=== PATIENT | male | born 1950 | race African-American/Black ===

== ENCOUNTER 2016-10-29 14:06 | Inpatient (IN) | payer MEDICARE ==
[2016-10-29 16:18] LABS: Basophils % (Auto) 0.2 % (0.0-1.8); Eosinophils % (Auto) 0.9 % (0.0-4.3); Hemoglobin 11.2 gm/dl (11.8-15.2); Mean Corpuscular HGB Conc 34 % (32-34); Mean Corpuscular Hemoglobin 31 pg (28-32); Mean Corpuscular Volume 92 fl (84-94); Red Blood Count 3.59 M/mm3 (3.65-5.03); Red Cell Distribution Width 16.7 % (13.2-15.2); White Blood Count 9.1 K/mm3 (4.5-11.0)
[2016-10-29 16:34] LABS: BUN/Creatinine Ratio 9.41; Chloride 106.6 mmol/L (98-107)
[2016-10-29] MEDS ORDERED: NACL 0.9% 1000 ML 1,000 ML IV ONE ×2 (17:04→17:12)
--- NOTE | 2016-10-29 17:09 | Emergency Department Report ---
ED General Adult HPI - General Chief complaint: Wound/Laceration Stated complaint: LEFT LEG PAIN Time Seen by Provider: 10/29/16 15:44 Source: patient Mode of arrival: Ambulatory Limitations: No Limitations - History of Present Illness Initial comments: Patient is a 66-year-old male who presents with left foot pain. He states that the pain is a 3 out 10 he states that walking on it makes it worse and nothing makes it better. The pain is located in his left ankle doesn't radiate achy type of pain. Is not associated with any symptoms is been going on for 1 week. He states that he saw a therapeutic specialist and was given medication for his condition however he has had no improvement. Patient denies having any fevers or chills. - Related Data Home Medications Medication Instructions Recorded Confirmed Last Taken Century Adults 50+ Tablet 1 tab PO DAILY 06/16/15 10/29/16 06/15/15 Losartan 50 mg PO DAILY 06/16/15 10/29/16 06/15/15 glipiZIDE 10 mg PO TIDWM 06/16/15 10/29/16 06/15/15 Gabapentin [Neurontin] 100 mg PO QHS 10/29/16 10/29/16 Unknown Naproxen/Esomeprazole Mag [Vimovo 2 each PO DAILY 10/29/16 10/29/[address] 500-20 mg Tablet] Allergies Allergy/AdvReac Type Severity Reaction Status Date / Time No Known Allergies Allergy Verified 10/29/16 14:13 ED Review of Systems ROS: Stated complaint: LEFT LEG PAIN Other details as noted in HPI Constitutional: denies: chills, fever Eyes: denies: eye pain, eye discharge, vision change ENT: denies: ear pain, throat pain Respiratory: denies: cough, shortness of breath, wheezing Cardiovascular: denies: chest pain, palpitations Endocrine: no symptoms reported Gastrointestinal: denies: abdominal pain, nausea, diarrhea Genitourinary: denies: urgency, dysuria Musculoskeletal: other (ankle pain) Skin: denies: rash, lesions Neurological: denies: headache, weakness, paresthesias Psychiatric: denies: anxiety, depression Hematological/Lymphatic: denies: easy bleeding, easy bruising ED Past Medical Hx - Past Medical History Hx Hypertension: Yes Hx Heart Attack/AMI: No Hx Diabetes: Yes Hx GERD: Yes Hx Liver Disease: Yes (HEPATITIS C) Hx Renal Disease: No Hx Seizures: No Hx Asthma: No Additional medical history: HEPC - Surgical History Hx Cholecystectomy: Yes - Social History Smoking Status: Current Every Day Smoker Substance Use Type: Alcohol - Medications Home Medications: Home Medications Medication Instructions Recorded Confirmed Last Taken Type Century Adults 50+ Tablet 1 tab PO DAILY 06/16/15 10/29/16 06/15/15 History Losartan 50 mg PO DAILY 06/16/15 10/29/16 06/15/15 History glipiZIDE 10 mg PO TIDWM 06/16/15 10/29/16 06/15/15 History Gabapentin [Neurontin] 100 mg PO QHS 10/29/16 10/29/16 Unknown History Naproxen/Esomeprazole Mag [Vimovo 2 each PO DAILY 10/29/16 10/29/[address] 500-20 mg Tablet] ED Physical Exam - General Limitations: No Limitations, Language Barrier General appearance: alert, in no apparent distress - Head Head exam: Present: atraumatic, normocephalic - Eye Eye exam: Present: normal appearance - ENT ENT exam: Present: mucous membranes moist - Neck Neck exam: Present: normal inspection - Respiratory Respiratory exam: Present: normal lung sounds bilaterally. Absent: respiratory distress - Cardiovascular Cardiovascular Exam: Present: regular rate, normal rhythm. Absent: systolic murmur, diastolic murmur, rubs, gallop - GI/Abdominal GI/Abdominal exam: Present: soft, normal bowel sounds - Rectal Rectal exam: Present: deferred - Extremities Exam Extremities exam: Present: other (+2 pulses swelling over left lateral malleolus with weeping drainage and erythema) - Back Exam Back exam: Present: normal inspection - Neurological Exam Neurological exam: Present: alert, oriented X3, CN II-XII intact - Psychiatric Psychiatric exam: Present: normal affect, normal mood - Skin Skin exam: Present: warm, dry, intact, normal color. Absent: rash ED Course Vital Signs 10/29/16 10/29/16 10/29/16 14:19 15:03 16:00 Temperature 98.3 F Pulse Rate 94 H 74 Respiratory 18 15 Rate Blood Pressure 125/76 107/77 O2 Sat by Pulse 100 100 100 Oximetry 10/29/16 10/29/16 10/29/16 16:51 17:00 18:00 Temperature Pulse Rate 74 75 Respiratory 15 12 16 Rate Blood Pressure 126/78 125/70 O2 Sat by Pulse 100 100 100 Oximetry 10/29/16 18:43 Temperature 97.9 F Pulse Rate Respiratory Rate Blood Pressure O2 Sat by Pulse Oximetry - Reevaluation(s) Reevaluation #1: 10/29/16 18:54 Patient states that he is in pain we'll give morphine and Dolobid patient for cellulitis. ED Medical Decision Making - Lab Data Result diagrams: 10/29/16 16:02 10/29/16 16:02 Laboratory Results - last 24 hr 10/29/16 10/29/16 10/29/16 14:16 16:02 16:02 WBC 9.1 RBC 3.59 L Hgb 11.2 L Hct 33.0 L MCV 92 MCH 31 MCHC 34 RDW 16.7 H Lymph % (Auto) 5.9 L Spink % (Auto) 12.7 H Eos % (Auto) 0.9 Baso % (Auto) 0.2 Lymph # 0.5 L Spink # 1.1 H Eos # 0.1 Baso # 0.0 Seg Neutrophils % 80.3 H Seg Neutrophils # 7.3 Sodium 137 Potassium 5.0 Chloride 106.6 Carbon Dioxide 21 L Anion Gap 14 BUN 16 Creatinine 1.7 H Estimated GFR 40 BUN/Creatinine Ratio 9.41 Glucose 197 H POC Glucose 173 H Lactic Acid Calcium 8.0 L 10/29/16 16:02 WBC RBC Hgb Hct MCV MCH MCHC RDW Lymph % (Auto) Spink % (Auto) Eos % (Auto) Baso % (Auto) Lymph # Spink # Eos # Baso # Seg Neutrophils % Seg Neutrophils # Sodium Potassium Chloride Carbon Dioxide Anion Gap BUN Creatinine Estimated GFR BUN/Creatinine Ratio Glucose POC Glucose Lactic Acid 2.10 H* Calcium - Medical Decision Making Chief medical diagnosis: Ankle cellulites Differential medical diagnostics: Ankle fracture, sepsis We'll get CBC, CMP, ankle x-ray, pain control, antibiotics, lactic acid, fluids and will admit. Critical care attestation.: If time is entered above; I have spent that time in minutes in the direct care of this critically ill patient, excluding procedure time. ED Disposition Clinical Impression: Acute kidney injury, Ankle cellulitis, Elevated lactic acid level Disposition: DC09 OP ADMIT IP TO THIS HOSP Is pt being admited?: Yes Does the pt Need Aspirin: No Condition: Stable Referrals: PRIMARY CARE, [Primary Care Provider] - 3-5 Days Time of Disposition: 18:56
[2016-10-29 17:55] LABS: Platelet Count 32 K/mm3 (140-440)
[2016-10-29] MEDS ORDERED: VANCOMYCIN/NS 1 GM/250 ML 1 GM/250 ML BAG IV SCH (18:00)
--- NOTE | 2016-10-29 18:13 | XRay Report ---
FINAL REPORT EXAM: XR ANKLE 3+V LT HISTORY: left ankle pain TECHNIQUE: 3 views of left ankle. PRIORS: None. FINDINGS: Diffuse osteopenia. Multiple surgical clips project over the lateral hindfoot. Mild posterior and plantar calcaneal spurring. No apparent fracture or dislocation. Ankle mortise maintained. Diffuse soft tissue edema, most pronounced over the lateral malleolus. IMPRESSION: 1. No acute osseous abnormality. 2. Postsurgical changes and soft tissue edema.
[2016-10-29] MEDS: VANCOMYCIN/NS 1 GM/250 ML 1 GM/250 ML BAG IV SCH (18:25)
[2016-10-29] MEDS ORDERED: BENADRYL IV ONE (18:27)
[2016-10-29] MEDS ORDERED: MORPHINE IV ONE (18:27)
[2016-10-29] MEDS ORDERED: PEPCID IV ONE ×2 (21:08→22:12)
[2016-10-29] MEDS ORDERED: D50W (25GM) IV PRN (21:17)
--- NOTE | 2016-10-29 21:28 | History and Physical Report ---
History of Present Illness Date of examination: 10/29/16 Date of admission: 10/29/16 Chief complaint: Infection of the left leg and ankle with an abscess in the left foot History of present illness: Patient is a 66-year-old male who has a history of diabetes mellitus, uncontrolled, chronic liver disease with hepatitis C, esophageal varices and ascites started have him pain with infection of his left ankle 2 weeks ago. So a foot doctor who treated him with some medication. Infectious continued to worsen with associated septic spots on the ankle and the distal third of the left leg. Denies any fever or chills, no nausea no vomiting. Patient has a history of diabetes mellitus and blood sugar has been in the 100s at home he stated. Denies any polyuria polydipsia polyphagia. Admission was therefore requested for further management Past History Past Medical History: diabetes, hypertension, other (chronic liver disease, ascites, esophageal varices,) Medications and Allergies Allergies Allergy/AdvReac Type Severity Reaction Status Date / Time No Known Allergies Allergy Verified 10/29/16 14:13 Home Medications Medication Instructions Recorded Confirmed Last Taken Type Century Adults 50+ Tablet 1 tab PO DAILY 06/16/15 10/29/16 06/15/15 History Losartan 50 mg PO DAILY 06/16/15 10/29/16 06/15/15 History glipiZIDE 10 mg PO TIDWM 06/16/15 10/29/16 06/15/15 History Gabapentin [Neurontin] 100 mg PO QHS 10/29/16 10/29/16 Unknown History Naproxen/Esomeprazole Mag [Vimovo 2 each PO DAILY 10/29/16 10/29/16 Unknown History 500-20 mg Tablet] Active Meds: Active Medications Dextrose (D50w (25gm)) 50 ml IV PRN PRN PRN Reason: Hypoglycemia Gabapentin (Neurontin) 100 mg PO QHS [facility] Heparin Sodium (Porcine) (Heparin) 5,000 unit SUB-Q Q8HR [facility] Vancomycin HCl (Vancomycin/Ns 1 Gm/250 Ml) 1 gm in 250 mls @ 125 mls/hr IV Q24H JASON Last Admin: 10/29/16 18:25 Dose: 125 mls/hr Cefazolin Sodium 2 gm/ Sodium (Chloride) 100 mls @ 200 mls/hr IV Q8HR [facility] Clindamycin HCl (Cleocin 600 Mg/50 Ml) 600 mg in 50 mls @ 100 mls/hr IV Q8HR JASON PRN Reason: Protocol Insulin Aspart (Novolog) 0 units SUB-Q ACHS JASON PRN Reason: Protocol Review of Systems Ears, nose, mouth and throat: ear discharge, no ear pain, no tinnitis Cardiovascular: no chest pain, no orthopnea, no palpitations Respiratory: no cough, no cough with sputum, no excessive sputum, no hemoptysis Gastrointestinal: no abdominal pain, no nausea, no vomiting, no diarrhea, no constipation Genitourinary Male: no dysuria Musculoskeletal: no neck stiffness, no neck pain, no shooting arm pain Integumentary: redness, sores, wounds (left leg) Neurological: no transient paralysis, no paralysis, no weakness, no parathesias Psychiatric: anxiety, no memory loss, no change in sleep habits Endocrine: no cold intolerance, no heat intolerance, no polyphagia, no excessive thirst Allergic/Immunologic: no urticaria, no allergic rhinitis, no wheezing Exam - Constitutional Vitals: Temp Pulse Resp BP Pulse Ox 97.9 F 81 17 133/84 100 10/29/16 18:43 10/29/16 20:00 10/29/16 20:00 10/29/16 20:00 10/29/16 20:00 General appearance: Present: no acute distress, well-nourished - EENT Eyes: Present: PERRL - Neck Neck: Present: supple, normal ROM - Respiratory Respiratory effort: normal Respiratory: bilateral: CTA - Cardiovascular Heart Sounds: Present: S1 & S2. Absent: rub, click - Extremities Extremities: pulses symmetrical, No edema Peripheral Pulses: within normal limits - Abdominal General gastrointestinal: Present: soft, non-tender, non-distended, normal bowel sounds Male genitourinary: Present: normal - Integumentary Integumentary: Present: clear, warm, dry - Musculoskeletal Musculoskeletal: gait normal, strength equal bilaterally - Psychiatric Psychiatric: appropriate mood/affect, intact judgment & insight - Neurologic Neurologic: CNII-XII intact, moves all extremities Results - Labs CBC & Chem 7: 10/31/16 05:20 10/31/16 05:20 Labs: Abnormal lab results 10/29/16 10/29/16 10/29/16 Range/Units 14:16 16:02 16:02 RBC 3.59 L (3.65-5.03) M/mm3 Hgb 11.2 L (11.8-15.2) gm/dl Hct 33.0 L (35.5-45.6) % RDW 16.7 H (13.2-15.2) % Plt Count 32 L (140-440) K/mm3 Lymph % (Auto) 5.9 L (13.4-35.0) % Irwin % (Auto) 12.7 H (0.0-7.3) % Lymph # 0.5 L (1.2-5.4) K/mm3 Irwin # 1.1 H (0.0-0.8) K/mm3 Seg Neutrophils % 80.3 H (40.0-70.0) % Carbon Dioxide 21 L (22-30) mmol/L Creatinine 1.7 H (0.8-1.5) mg/dL Glucose 197 H (75-100) mg/dL POC Glucose 173 H (70-105) Lactic Acid (0.7-2.0) mmol/L Calcium 8.0 L (8.4-10.2) mg/dL 10/29/16 Range/Units 16:02 RBC (3.65-5.03) M/mm3 Hgb (11.8-15.2) gm/dl Hct (35.5-45.6) % RDW (13.2-15.2) % Plt Count (140-440) K/mm3 Lymph % (Auto) (13.4-35.0) % Irwin % (Auto) (0.0-7.3) % Lymph # (1.2-5.4) K/mm3 Irwin # (0.0-0.8) K/mm3 Seg Neutrophils % (40.0-70.0) % Carbon Dioxide (22-30) mmol/L Creatinine (0.8-1.5) mg/dL Glucose (75-100) mg/dL POC Glucose (70-105) Lactic Acid 2.10 H* (0.7-2.0) mmol/L Calcium (8.4-10.2) mg/dL - Imaging and Cardiology EKG: report reviewed Assessment and Plan - Cellulitis of the left lower extremities with abscess in theankle - Acute kidney injury - Diabetes mellitus - Chronic liver disease - Esophageal varices - thrombocytopenia - Plan Obtain blood culture and wound culture left leg Commence patient on IV clindamycin and cefazolin Obtain ammonia level ultrasound of the abdomen to further evaluate ascites Sliding scale insulin. Consistent collided diet. GI consult for chronic liver disease and ascites both of which medicine to hypoglycemia would mitigate against healing. Local wound care consult DVT prophylaxis with heparin and GI with Pepcid Spent 35 minutes in direct patient care, evaluation of laboratory and radiological data
[2016-10-29] MEDS ORDERED: ceFAZolin 2 GM in NACL 0.9% 100 ML IV SCH (22:00)
[2016-10-29] MEDS ORDERED: LEVAQUIN 500MG/100ML 500 MG/100 ML BAG IV SCH (22:00)
[2016-10-29] MEDS: NOVOLOG SUB-Q SCH (22:04)
[2016-10-29] MEDS ORDERED: HEPARIN ONE (22:13)
[2016-10-29] MEDS ORDERED: NEURONTIN ONE (22:13)
[2016-10-29] MEDS: HEPARIN SUB-Q SCH (22:23)
[2016-10-29] MEDS: ceFAZolin 2 GM in NACL 0.9% 100 ML IV SCH (22:24)
[2016-10-29] MEDS: NEURONTIN PO SCH (22:24)
[2016-10-29] MEDS ORDERED: CLEOCIN 600 MG/50 mL 600 MG/50 ML BAG IV ONE (23:16)
[2016-10-29] MEDS: CLEOCIN 600 MG/50 mL 600 MG/50 ML BAG IV SCH (23:18)
[2016-10-30] MEDS: CLEOCIN 600 MG/50 mL 600 MG/50 ML BAG IV SCH ×3 (05:50→21:41)
[2016-10-30] MEDS: HEPARIN SUB-Q SCH (05:50)
[2016-10-30 06:35] LABS: Basophils % (Auto) 0.2 % (0.0-1.8); Eosinophils % (Auto) 1.5 % (0.0-4.3); Hematocrit 31.4 % (35.5-45.6); Hemoglobin 10.7 gm/dl (11.8-15.2); Mean Corpuscular HGB Conc 34 % (32-34); Mean Corpuscular Hemoglobin 31 pg (28-32); Mean Corpuscular Volume 92 fl (84-94); Red Blood Count 3.44 M/mm3 (3.65-5.03); Red Cell Distribution Width 16.8 % (13.2-15.2); White Blood Count 7.2 K/mm3 (4.5-11.0)
[2016-10-30 06:50] LABS: Platelet Count 35 K/mm3 (140-440)
[2016-10-30 06:54] LABS: Albumin 1.8 g/dL (3.9-5); Albumin/Globulin Ratio 0.4 %; Bilirubin,Total 1.1 mg/dL (0.1-1.2); Calcium 7.6 mg/dL (8.4-10.2); Chloride 110.9 mmol/L (98-107); Potassium 4.2 mmol/L (3.6-5.0); Total Protein 6.6 g/dL (6.3-8.2)
[2016-10-30 07:01] LABS: Magnesium 1.6 mg/dL (1.7-2.3); Phosphorous 3.8 mg/dL (2.5-4.5)
[2016-10-30] MEDS ORDERED: MAGNESIUM SULFATE 2GM/50ML 2 GM/50 ML BAG IV ONE (08:30)
[2016-10-30] MEDS: NOVOLOG SUB-Q SCH ×4 (08:33→21:42)
--- NOTE | 2016-10-30 10:16 | Progress Note ---
Assessment and Plan Assessment and plan: Patient is 66-year-old man history of type 2 diabetes mellitus, hepatitis C with chronic liver disease, esophageal varices who presents with left ankle pain and swelling. Ankle x-ray reported as no acute findings. -Sepsis due to left ankle/leg cellulitis, POA as evident by temperature 100.5. Heart rate 94: Continue IV vancomycin, consult ID for antibiotic management -Left ankle abscess may need drainage: Consult Dr. Allen -Suspected peripheral vascular disease with diabetes mellitus and complicated left ankle ulcer: Consult vascular service -Uncontrolled type 2 diabetes mellitus with above complications: Advised scale insulin and ADA diet -Hyperammonemia with constipation due to liver disease: Start lactulose, and daily ammonia levels -Severe protein calorie malnutrition, albumin 1.8, BMI 25 but most of weight is fluid around his abdomen: Consult dietitian -Chronic liver disease: Consult GI -Thrombocytopenia most likely due to liver disease: Stop subcutaneous heparin DVT prophylaxis, await with GI recommendations -Hypomagnesemia: Replace and recheck in a.m. -Anemia with appears to be a chronic disease: Continue to monitor -DVT prophylaxis: SCDs only Full code History Interval history: Patient states he speaks and understands little bit of [place]. 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 Follow up on current diagnosis/left ankle pain. Overnight uneventful. No cp, sob, n/v or severe headaches. Imaging, old records , testing, labs, nursing notes reviewed. He denies any injury, who has been progressively getting worse greater than a week. He also complains of constipation. Hospitalist Physical - Physical exam Narrative exam: GEN: thin frail, NAD, AWAKE, ALERT, ORIENTATED x 3 HEENT: NCAT, PERRL, EOMI, OP CLEAR NECK: SUPPLE, NO THYROMEGALY, NO JVD, NO LAD CVS: RRR, NORMAL S1S2 LUNGS/CHEST: CTA B, NORMAL CHEST EXPANSION B, GOOD AIR ENTRY B ABD: SOFT, distension with ascites, nontendern GBS, NO REBOUND OR GUARDING EXT/SKIN: left ankle with obvious abscess mound with surrounding erthyema MSK: FROM X 4 EXTREMITIES NEURO: CN 2-12 GROSSLY INTACT, NO FOCAL DEFICITS PSY: CALM - Constitutional Vitals: Temp Pulse Resp BP Pulse Ox 98.0 F 72 16 103/66 97 10/30/16 08:07 10/30/16 08:07 10/30/16 08:07 10/30/16 08:07 10/30/16 08:07 General appearance: Present: no acute distress, cachectic. Absent: well- nourished Results - Labs CBC & Chem 7: 10/30/16 06:10 10/30/16 06:10 Labs: Laboratory Last Values WBC 7.2 K/mm3 (4.5-11.0) 10/30/16 06:10 RBC 3.44 M/mm3 (3.65-5.03) L 10/30/16 06:10 Hgb 10.7 gm/dl (11.8-15.2) L 10/30/16 06:10 Hct 31.4 % (35.5-45.6) L 10/30/16 06:10 MCV 92 fl (84-94) 10/30/16 06:10 MCH 31 pg (28-32) 10/30/16 06:10 MCHC 34 % (32-34) 10/30/16 06:10 RDW 16.8 % (13.2-15.2) H 10/30/16 06:10 Plt Count 35 K/mm3 (140-440) L 10/30/16 06:10 Lymph % (Auto) 6.9 % (13.4-35.0) L 10/30/16 06:10 Winston % (Auto) 12.4 % (0.0-7.3) H 10/30/16 06:10 Eos % (Auto) 1.5 % (0.0-4.3) 10/30/16 06:10 Baso % (Auto) 0.2 % (0.0-1.8) 10/30/16 06:10 Lymph # 0.5 K/mm3 (1.2-5.4) L 10/30/16 06:10 Winston # 0.9 K/mm3 (0.0-0.8) H 10/30/16 06:10 Eos # 0.1 K/mm3 (0.0-0.4) 10/30/16 06:10 Baso # 0.0 K/mm3 (0.0-0.1) 10/30/16 06:10 Seg Neutrophils % 79.0 % (40.0-70.0) H 10/30/16 06:10 Seg Neutrophils # 5.7 K/mm3 (1.8-7.7) 10/30/16 06:10 Sodium 141 mmol/L (137-145) 10/30/16 06:10 Potassium 4.2 mmol/L (3.6-5.0) 10/30/16 06:10 Chloride 110.9 mmol/L (98-107) H 10/30/16 06:10 Carbon Dioxide 20 mmol/L (22-30) L 10/30/16 06:10 Anion Gap 14 mmol/L 10/30/16 06:10 BUN 15 mg/dL (9-20) 10/30/16 06:10 Creatinine 1.5 mg/dL (0.8-1.5) 10/30/16 06:10 Estimated GFR 47 ml/min 10/30/16 06:10 BUN/Creatinine Ratio 10.00 % 10/30/16 06:10 Glucose 153 mg/dL (75-100) H 10/30/16 06:10 POC Glucose 167 (70-105) H 10/30/16 06:04 Hemoglobin A1c 5.3 % (4-6) 10/29/16 16:02 Lactic Acid 1.50 mmol/L (0.7-2.0) 10/30/16 06:10 Calcium 7.6 mg/dL (8.4-10.2) L 10/30/16 06:10 Phosphorus 3.80 mg/dL (2.5-4.5) 10/30/16 06:10 Magnesium 1.60 mg/dL (1.7-2.3) L 10/30/16 06:10 Total Bilirubin 1.10 mg/dL (0.1-1.2) 10/30/16 06:10 AST 42 units/L (5-40) H 10/30/16 06:10 ALT 24 units/L (7-56) 10/30/16 06:10 Alkaline Phosphatase 194 units/L (35-129) H 10/30/16 06:10 Ammonia 61.0 umol/L (25-60) H 10/30/16 00:36 Total Protein 6.6 g/dL (6.3-8.2) 10/30/16 06:10 Albumin 1.8 g/dL (3.9-5) L 10/30/16 06:10 Albumin/Globulin Ratio 0.4 % 10/30/16 06:10
[2016-10-30] MEDS: ceFAZolin 2 GM in NACL 0.9% 100 ML IV SCH ×2 (10:18→21:41)
[2016-10-30] MEDS ORDERED: TYLENOL PO PRN (12:48)
[2016-10-30] MEDS: NORCO 5/325 PO PRN ×2 (13:03→22:54)
[2016-10-30] MEDS: CEPHULAC PO SCH ×3 (13:04→23:51)
[2016-10-30] MEDS: VANCOMYCIN/NS 1 GM/250 ML 1 GM/250 ML BAG IV SCH (17:11)
[2016-10-30] MEDS: NEURONTIN PO SCH (21:40)
[2016-10-30] MEDS ORDERED: NACL 0.9% 250ML 250 ML ONE (21:45)
--- NOTE | 2016-10-31 04:43 | Admit Criteria Form ---
Admission Criteria Documentation: SEPSIS and OTHER FEBRILE ILLNESS, W/O FOCAL INFECTION Clinical Indications for Admission to Inpatient Care ( Place 'X' for any and all applicable criteria): Admission is indicated for ANY ONE of the following (1)(2)(3)(4): [ ] I. Bacteremia [X]II. Suspected or identified specific infection requiring hospitalization (eg, meningitis, endocarditis) [ ]III. Hemodynamic instability [ ]IV. Altered mental status [ ]V. Failure or unavailability of outpatient antimicrobial treatment [ ]. Hypoxemia [ ]VII. Seizures [ ]VIII. High-risk febrile neutropenia [ ]IX. Need for parenteral antibiotic in patient who is likely to abuse vascular access device (eg, injection drug user) [A](7) [ ]X. Temperature greater than 104.9 degrees F (40.5 degrees C) (oral) [X]XI. Inpatient admission required rather than observation care because of ANY ONE of the following: [ ]1) Specific infection identified that is too severe for outpatient treatment or observation care trial [X]2) Metabolic disorder (eg, hypoglycemia, hyperglycemia, metabolic acidosis) that is severe or persistent [ ]3) Temperature greater than 103.1 degrees F (39.5 degrees C) ( oral) that is not responsive to observation care treatment [ ]4) IV fluid to replace significant ongoing (eg, for over 24 hours) losses (> 3 L/m2 per day) [ ]5) Supplemental oxygen or respiratory treatments for over 24 hours that is performable only in acute inpatient setting [ ]6) Parenteral nutrition regimen need that must be implemented on inpatient basis [ ]7) Strict or protective (eg, laminar flow) isolation [ ]8) Other condition, treatment or monitoring requiring inpatient admission Extended stay beyond goal length of stay may be needed for(1)(3) [ ]a) Sepsis or septic shock(22) [ ]b) Positive blood cultures [ ]c) Insufficient oral intake [ ]d) High-risk febrile neutropenia(29)(30) [ ]e) Continued fever and clinical instability [ ]f) Clinically active comorbid illness (e.g,heart failure, renal failure , diabetes) The original [facility] [employer] content created by Darren Godwin has been revised. The portions of the content which have been revised are identified through the use of italic text or in bold, and [employer] has neither reviewed nor approved the modified material. All other unmodified content is copyright [facility]. Please see references footnoted in the original [facility] edition 2016 Admission Criteria Met: Yes
[2016-10-31] MEDS: CLEOCIN 600 MG/50 mL 600 MG/50 ML BAG IV SCH (05:39)
[2016-10-31] MEDS: CEPHULAC PO SCH (05:40)
[2016-10-31 06:50] LABS: Basophils % (Auto) 0.3 % (0.0-1.8); Eosinophils % (Auto) 1.7 % (0.0-4.3); Hematocrit 31.4 % (35.5-45.6); Hemoglobin 10.9 gm/dl (11.8-15.2); Mean Corpuscular HGB Conc 35 % (32-34); Mean Corpuscular Hemoglobin 31 pg (28-32); Mean Corpuscular Volume 90 fl (84-94); Platelet Count 34 K/mm3 (140-440); Red Blood Count 3.48 M/mm3 (3.65-5.03); Red Cell Distribution Width 16.5 % (13.2-15.2); White Blood Count 5.8 K/mm3 (4.5-11.0)
[2016-10-31] MEDS: NOVOLOG SUB-Q SCH ×4 (07:30→23:58)
[2016-10-31 07:41] LABS: Albumin 1.8 g/dL (3.9-5); Albumin/Globulin Ratio 0.4 %; BUN/Creatinine Ratio 9.28; Bilirubin,Total 1.1 mg/dL (0.1-1.2); Calcium 7.7 mg/dL (8.4-10.2); Chloride 109.2 mmol/L (98-107); Potassium 3.7 mmol/L (3.6-5.0); Total Protein 6.7 g/dL (6.3-8.2)
--- NOTE | 2016-10-31 07:53 | Consultation ---
REFERRING PHYSICIAN: Jorge Jimenez M.D. INDICATIONS: 1. Liver disease. 2. Cirrhosis. HISTORY OF PRESENT ILLNESS: The patient is a 66-year-old male with history of diabetes, chronic liver disease with history of hep C with reported esophageal varices and ascites, now being seen for foot infection. The patient reports 2 weeks infection on the left ankle. He reports foot doctor tried to treat with medication. The patient reports infection had worsened, started having some fevers, chills, and subsequently came to the Emergency Room. The patient denies any GI or liver complaints. He reports no nausea, vomiting, diarrhea, constipation, or rectal bleeding. He reports he followed at [facility] and last saw his liver team 2 weeks ago. He reports he had been set up for an ultrasound and other management. He denies any other significant GI problems or complaints. PAST MEDICAL HISTORY: 1. Hypertension. 2. Diabetes. 3. Chronic liver disease with esophageal varices and ascites. The patient has a history of hep C. MEDICATIONS: See chart. ALLERGIES: No known drug allergies. SOCIAL HISTORY: Denies alcohol, tobacco, or drug abuse. FAMILY HISTORY: Colon cancer. REVIEW OF SYSTEMS: GENERAL: ___ mild weakness. HEENT: No visual complaints or tinnitus. PULMONARY: Denies shortness of breath. No cough. No chest pain. GASTROINTESTINAL: Denies any complaints. EXTREMITY: Positive knee discomfort. All points of 13-point review of systems otherwise negative. PHYSICAL EXAMINATION: VITAL SIGNS: Temperature of 98.0, pulse 72, respirations 16, blood pressure 103/66. GENERAL: Fairly nourished male, in no acute distress. HEENT: Pupils equal, round, reactive to light and accommodation. Extraocular movements intact. PULMONARY: Clear to auscultation bilaterally. CARDIOVASCULAR: Regular rhythm. Normal S1, S2. ABDOMEN: Positive bowel sounds, soft. SKIN: No obvious rashes. Left ankle with mild swelling and discomfort, otherwise no rashes. LABORATORY DATA: Pertinent for white count 7.2, hemoglobin and hematocrit 10.7 and 31.4, platelet count of 35. Chem-7 within normal limits. AST and ALT of 42 and 24, alk phos of 194, albumin of 1.8. ASSESSMENT AND PLAN: A 66-year-old male with history of hep C with cirrhosis, who reported history of ascites and varices, who has been followed actively at [facility] and last saw his liver team 2 weeks ago. The patient reports he had been set up for an ultrasound and other management issues, but he has otherwise been stable. The patient presents now with a left ankle infection. At this time, he has no active GI or liver issues that require further management at this time. The patient has set up an follow up at [facility] and will continue to do so. There is no need to change any medical approach at this time. PLAN: 1. Ankle infection per primary team. 2. No need for change in liver management at this time with patient to follow up at [facility]. 3. We will sign off, call if needed. JOB# [id number] CAB/NTS
--- NOTE | 2016-10-31 09:40 | Consultation ---
History of Present Illness - Reason for Consult Consult date: 10/31/16 Left Ankle Abscess; Abx Mangement Requesting physician: PILY JENSEN - History of Present Illness Ms. Goodwin is a 66-year-old woman with DM2 and hypertension who is being treated for a presumptive infection of the left ankle. History is difficult to obtain, but is provided by the patient and his son, who is at the bedside. Patient had a remote left heel wound (~25 years ago), which required skin graft closure. He has had no residual problems with his heel. He denies having indwelling hardware. Suddenly ~2 weeks prior to admission, the patient noticed swelling over the laetral aspect of his left ankle. He denies trauma or local injury. He does not wear shoes which could cause superficial trauma. He has had no constitutional signs/ symptoms. He presented here for evaluation. A left ankle xray showed post-surgical changes and soft tissue edema. Blood cultures were obtained and are no growth to date. ID consultation is requested for antibiotic recommendations. Past History Past Medical History: diabetes, hypertension, other (chronic liver disease, ascites, esophageal varices,) Family history: hypertension Medications and Allergies Allergies Allergy/AdvReac Type Severity Reaction Status Date / Time No Known Allergies Allergy Verified 10/29/16 14:13 Home Medications Medication Instructions Recorded Confirmed Last Taken Type Century Adults 50+ Tablet 1 tab PO DAILY 06/16/15 10/29/16 06/15/15 History Losartan 50 mg PO DAILY 06/16/15 10/29/16 06/15/15 History glipiZIDE 10 mg PO TIDWM 06/16/15 10/29/16 06/15/15 History Gabapentin [Neurontin] 100 mg PO QHS 10/29/16 10/29/16 Unknown History Naproxen/Esomeprazole Mag [Vimovo 2 each PO DAILY 10/29/16 10/29/16 Unknown History 500-20 mg Tablet] Active Meds: Active Medications Acetaminophen (Tylenol) 650 mg PO Q4H PRN PRN Reason: Pain, Mild (1-3) Acetaminophen/Hydrocodone Bitart ([place] 5/325) 1 each PO Q4H PRN PRN Reason: Pain , Severe (7-10) Last Admin: 10/30/16 22:54 Dose: 1 each Dextrose (D50w (25gm)) 50 ml IV PRN PRN PRN Reason: Hypoglycemia Gabapentin (Neurontin) 100 mg PO QHS [facility] Last Admin: 10/30/16 21:40 Dose: 100 mg Vancomycin HCl (Vancomycin/Ns 1 Gm/250 Ml) 1 gm in 250 mls @ 125 mls/hr IV Q24H [facility] Last Admin: 10/30/16 17:11 Dose: 125 mls/hr Clindamycin HCl (Cleocin 600 Mg/50 Ml) 600 mg in 50 mls @ 100 mls/hr IV Q8H JASON PRN Reason: Protocol Last Admin: 10/31/16 05:39 Dose: 100 mls/hr Cefazolin Sodium 2 gm/ Sodium (Chloride) 100 mls @ 200 mls/hr IV Q12H [facility] Last Admin: 10/30/16 21:41 Dose: 200 mls/hr Insulin Aspart (Novolog) 0 units SUB-Q ACHS JASON PRN Reason: Protocol Last Admin: 10/30/16 21:42 Dose: Not Given Review of Systems All systems: negative Constitutional: weight loss (2 lbs total), no fever, no sweats, no weakness, no poor appetite Cardiovascular: no chest pain, no palpitations Respiratory: no cough, no hemoptysis, no shortness of breath Gastrointestinal: no abdominal pain, no nausea, no vomiting, no diarrhea Genitourinary Male: no dysuria Musculoskeletal: shooting leg pain, no hot joints Integumentary: no rash, no pruritis Physical Examination - Constitutional Vitals: Vital Signs Temp Pulse Resp BP Pulse Ox 100.5 F H 77 18 116/71 96 10/30/16 22:00 10/30/16 22:00 10/30/16 22:00 10/30/16 22:00 10/30/16 22:00 Temperature -Last 24 Hours Temperature 100.5 F Temperature 98.0 F Temperature 98.0 F Temperature 98.0 F General appearance: Present: no acute distress, well-nourished - EENT ENT: poor dentition - Neck Neck: Present: supple - Respiratory Respiratory effort: normal Respiratory: bilateral: CTA, negative: rales, rhonchi - Cardiovascular Rhythm: regular Heart Sounds: Present: S1 & S2 - Extremities Extremity abnormal: edema (erythema of the left foot with small ulceration laterally on dorsum along with a prominent lateral ankle nodule with fluctuance and purplish hue, tender locally with no increased warmth to touch) - Abdominal General gastrointestinal: Present: soft, non-tender, non-distended - Integumentary Integumentary: Present: rash (bilateral hyperpigmentation along shins) - Psychiatric Psychiatric: appropriate mood/affect - Neurologic Neurologic: moves all extremities Results - Labs CBC & Chem 7: 10/31/16 05:20 10/31/16 05:20 Labs: Abnormal lab results 10/30/16 10/30/16 10/30/16 Range/Units 11:24 16:00 21:40 RBC (3.65-5.03) M/mm3 Hgb (11.8-15.2) gm/dl Hct (35.5-45.6) % MCHC (32-34) % RDW (13.2-15.2) % Plt Count (140-440) K/mm3 Lymph % (Auto) (13.4-35.0) % [place] % (Auto) (0.0-7.3) % Lymph # (1.2-5.4) K/mm3 [place] # (0.0-0.8) K/mm3 Seg Neutrophils % (40.0-70.0) % Chloride (98-107) mmol/L Carbon Dioxide (22-30) mmol/L POC Glucose 172 H 185 H 135 H (70-105) Calcium (8.4-10.2) mg/dL AST (5-40) units/L Alkaline Phosphatase (35-129) units/L Albumin (3.9-5) g/dL 10/31/16 10/31/16 Range/Units 05:20 05:20 RBC 3.48 L (3.65-5.03) M/mm3 Hgb 10.9 L (11.8-15.2) gm/dl Hct 31.4 L (35.5-45.6) % MCHC 35 H (32-34) % RDW 16.5 H (13.2-15.2) % Plt Count 34 L (140-440) K/mm3 Lymph % (Auto) 10.8 L (13.4-35.0) % [place] % (Auto) 16.0 H (0.0-7.3) % Lymph # 0.6 L (1.2-5.4) K/mm3 [place] # 0.9 H (0.0-0.8) K/mm3 Seg Neutrophils % 71.2 H (40.0-70.0) % Chloride 109.2 H (98-107) mmol/L Carbon Dioxide 20 L (22-30) mmol/L POC Glucose (70-105) Calcium 7.7 L (8.4-10.2) mg/dL AST 41 H (5-40) units/L Alkaline Phosphatase 194 H (35-129) units/L Albumin 1.8 L (3.9-5) g/dL Microbiology 10/29/16 17:27 Peripheral/Venous Blood Culture - Preliminary NO GROWTH AFTER 24 HOURS 10/29/16 17:27 Peripheral/Venous Blood Culture - Preliminary NO GROWTH AFTER 24 HOURS Assessment and Plan - Patient Problems (1) Mass of left ankle Current Visit: Yes Status: Acute Plan to address problem: 1. Questionable etiology of mass, abscess vs. tumor vs. mycetoma vs. emboli. 2. Recommend CT lower extremity with biopsy. Requesting bacterial, AFB, fungal, path studies of tissue. 3. Will change Ancef and Clindamycin to empiric Vancomycin and Rocephin pending further data. 4. Surgical clips are present on xray, although no other hardware is seen.
[2016-10-31] MEDS: ceFAZolin 2 GM in NACL 0.9% 100 ML IV SCH (11:41)
--- NOTE | 2016-10-31 12:05 | Progress Note ---
Assessment and Plan Assessment and plan: Patient is 66-year-old man history of type 2 diabetes mellitus, hepatitis C with chronic liver disease, esophageal varices who presents with left ankle pain and swelling. Ankle x-ray reported as no acute findings. -Sepsis due to left ankle/leg cellulitis, POA as evident by temperature 100.5. Heart rate 94: Continue IV vancomycin, consult ID for antibiotic management -Left ankle abscess may need drainage: Consult Dr. Allen -Suspected peripheral vascular disease with diabetes mellitus and complicated left ankle ulcer: Consult vascular service -Uncontrolled type 2 diabetes mellitus with above complications: Advised scale insulin and ADA diet -Hyperammonemia with constipation due to liver disease: Start lactulose, and daily ammonia levels -Severe protein calorie malnutrition, albumin 1.8, BMI 25 but most of weight is fluid around his abdomen: Consult dietitian -Chronic liver disease: Consult GI -Thrombocytopenia most likely due to liver disease: Stop subcutaneous heparin DVT prophylaxis, await with GI recommendations -Hypomagnesemia: Replace and recheck in a.m. -Anemia with appears to be a chronic disease: Continue to monitor -DVT prophylaxis: SCDs only Full code Await surgical evaluation, patient still febrile History Interval history: Patient states he speaks and understands little bit of Danish. Patient declines lang interpreter services today Patient seen and examined. Follow up on current diagnosis/left ankle pain. Overnight uneventful. No cp, sob, n/v or severe headaches. Imaging, old records , testing, labs, nursing notes reviewed. He denies any injury, who has been progressively getting worse greater than a week. He also complains of constipation. Hospitalist Physical - Physical exam Narrative exam: GEN: thin frail, NAD, AWAKE, ALERT, ORIENTATED x 3 HEENT: NCAT, PERRL, EOMI, OP CLEAR NECK: SUPPLE, NO THYROMEGALY, NO JVD, NO LAD CVS: RRR, NORMAL S1S2 LUNGS/CHEST: CTA B, NORMAL CHEST EXPANSION B, GOOD AIR ENTRY B ABD: SOFT, distension with ascites, nontendern GBS, NO REBOUND OR GUARDING EXT/SKIN: left ankle with obvious abscess mound with surrounding erthyema MSK: FROM X 4 EXTREMITIES NEURO: CN 2-12 GROSSLY INTACT, NO FOCAL DEFICITS PSY: CALM - Constitutional Vitals: Temp Pulse Resp BP Pulse Ox 99.9 F H 70 18 115/70 96 10/31/16 08:15 10/31/16 08:15 10/31/16 08:15 10/31/16 08:15 10/31/16 08:15 General appearance: Present: no acute distress, well-nourished Results - Labs CBC & Chem 7: 10/31/16 05:20 10/31/16 05:20 Labs: Laboratory Last Values WBC 5.8 K/mm3 (4.5-11.0) 10/31/16 05:20 RBC 3.48 M/mm3 (3.65-5.03) L 10/31/16 05:20 Hgb 10.9 gm/dl (11.8-15.2) L 10/31/16 05:20 Hct 31.4 % (35.5-45.6) L 10/31/16 05:20 MCV 90 fl (84-94) 10/31/16 05:20 MCH 31 pg (28-32) 10/31/16 05:20 MCHC 35 % (32-34) H 10/31/16 05:20 RDW 16.5 % (13.2-15.2) H 10/31/16 05:20 Plt Count 34 K/mm3 (140-440) L 10/31/16 05:20 Lymph % (Auto) 10.8 % (13.4-35.0) L 10/31/16 05:20 [place] % (Auto) 16.0 % (0.0-7.3) H 10/31/16 05:20 Eos % (Auto) 1.7 % (0.0-4.3) 10/31/16 05:20 Baso % (Auto) 0.3 % (0.0-1.8) 10/31/16 05:20 Lymph # 0.6 K/mm3 (1.2-5.4) L 10/31/16 05:20 [place] # 0.9 K/mm3 (0.0-0.8) H 10/31/16 05:20 Eos # 0.1 K/mm3 (0.0-0.4) 10/31/16 05:20 Baso # 0.0 K/mm3 (0.0-0.1) 10/31/16 05:20 Seg Neutrophils % 71.2 % (40.0-70.0) H 10/31/16 05:20 Seg Neutrophils # 4.1 K/mm3 (1.8-7.7) 10/31/16 05:20 Sodium 140 mmol/L (137-145) 10/31/16 05:20 Potassium 3.7 mmol/L (3.6-5.0) 10/31/16 05:20 Chloride 109.2 mmol/L (98-107) H 10/31/16 05:20 Carbon Dioxide 20 mmol/L (22-30) L 10/31/16 05:20 Anion Gap 15 mmol/L 10/31/16 05:20 BUN 13 mg/dL (9-20) 10/31/16 05:20 Creatinine 1.4 mg/dL (0.8-1.5) 10/31/16 05:20 Estimated GFR 51 ml/min 10/31/16 05:20 BUN/Creatinine Ratio 9.28 % 10/31/16 05:20 Glucose 85 mg/dL (75-100) 10/31/16 05:20 POC Glucose 190 (70-105) H 10/31/16 11:21 Hemoglobin A1c 5.3 % (4-6) 10/29/16 16:02 Lactic Acid 1.20 mmol/L (0.7-2.0) 10/31/16 05:20 Calcium 7.7 mg/dL (8.4-10.2) L 10/31/16 05:20 Phosphorus 3.80 mg/dL (2.5-4.5) 10/30/16 06:10 Magnesium 1.80 mg/dL (1.7-2.3) 10/31/16 05:20 Total Bilirubin 1.10 mg/dL (0.1-1.2) 10/31/16 05:20 AST 41 units/L (5-40) H 10/31/16 05:20 ALT 19 units/L (7-56) 10/31/16 05:20 Alkaline Phosphatase 194 units/L (35-129) H 10/31/16 05:20 Ammonia 40.0 umol/L (25-60) 10/31/16 05:20 Total Protein 6.7 g/dL (6.3-8.2) 10/31/16 05:20 Albumin 1.8 g/dL (3.9-5) L 10/31/16 05:20 Albumin/Globulin Ratio 0.4 % 10/31/16 05:20
[2016-10-31] MEDS: ROCEPHIN/NS 1 GM/50 ML 1 GM/50 ML BAG IV SCH (13:00)
[2016-10-31] MEDS: NORCO 5/325 PO PRN ×2 (13:06→21:32)
--- NOTE | 2016-10-31 14:58 | Consultation ---
History of Present Illness - HPI Consult date: 10/31/16 Consult reason: joint pain History of present illness: 66-year-old male who complains of left ankle pain and swelling for the past week or so, he denies a history of trauma states the pain came on gradually and got to the point where he could not stand it any longer and presented to the emergency room. Past History Past Medical History: diabetes, hypertension, other (chronic liver disease, ascites, esophageal varices,) Family history: hypertension Medications and Allergies Allergies Allergy/AdvReac Type Severity Reaction Status Date / Time No Known Allergies Allergy Verified 10/29/16 14:13 Home Medications Medication Instructions Recorded Confirmed Last Taken Type Century Adults 50+ Tablet 1 tab PO DAILY 06/16/15 10/29/16 06/15/15 History Losartan 50 mg PO DAILY 06/16/15 10/29/16 06/15/15 History glipiZIDE 10 mg PO TIDWM 06/16/15 10/29/16 06/15/15 History Gabapentin [Neurontin] 100 mg PO QHS 10/29/16 10/29/16 Unknown History Naproxen/Esomeprazole Mag [Vimovo 2 each PO DAILY 10/29/16 10/29/[address] 500-20 mg Tablet] Active Meds: Active Medications Acetaminophen (Tylenol) 650 mg PO Q4H PRN PRN Reason: Pain, Mild (1-3) Acetaminophen/Hydrocodone Bitart ([place] 5/325) 1 each PO Q4H PRN PRN Reason: Pain , Severe (7-10) Last Admin: 10/31/16 13:06 Dose: 1 each Dextrose (D50w (25gm)) 50 ml IV PRN PRN PRN Reason: Hypoglycemia Gabapentin (Neurontin) 100 mg PO QHS [facility] Last Admin: 10/30/16 21:40 Dose: 100 mg Vancomycin HCl (Vancomycin/Ns 1 Gm/250 Ml) 1 gm in 250 mls @ 125 mls/hr IV Q24H [facility]ASON Last Admin: 10/30/16 17:11 Dose: 125 mls/hr Ceftriaxone Sodium (Rocephin/Ns 1 Gm/50 Ml) 1 gm in 50 mls @ 100 mls/hr IV Q24H JASON PRN Reason: Protocol Insulin Aspart (Novolog) 0 units SUB-Q ACHS JASON PRN Reason: Protocol Last Admin: 10/31/16 13:08 Dose: Not Given Physical Examination - Physical exam Narrative exam: Physical examination the left ankle reveals some swelling along the lateral malleolus there is very little in the way of redness erythema, there is fluctuance noted patient has good active and passive range of motion at the ankle joint Plain x-rays taken revealed no obvious bony or soft tissue abnormality Assessment and Plan Assessment- left ankle pain and swelling Recommendations - incision and drainage was done at the bedside with the return of a bloody drainage there was no odor detected, I would recommend continuing IV antibiotics along with observation
--- NOTE | 2016-10-31 16:14 | Consultation ---
History of Present Illness - Reason for Consult Consult date: 10/31/16 Evaluation of Blood Flow to the Left Lower Extremity Requesting physician: PILY JENSEN - History of Present Illness This patient is a 66-year-old [place] male that was admitted via the emergency room on 10/29/2016 due to a 2 week history of left foot and ankle pain with ulceration. The patient speaks broken Malawian. He reports a normal ankle approximately one month ago. He subsequently developed a small ulceration which subsequently blistered. He developed erythema which has spread up his leg. The leg wound has not improved therefore he went to the emergency room where he has since been admitted. With concerns of possible peripheral arterial disease, a vascular surgery consult has been requested to further evaluate. Past History Past Medical History: diabetes, hepatitis (type C), hypertension, other ( chronic liver disease, ascites, esophageal varices,) Past Surgical History: Other (left ankle surgery approximately 25 years ago) Social history: lives with family, smoking (smokes approximately 10 cigarettes per day) Family history: hypertension Medications and Allergies Allergies Allergy/AdvReac Type Severity Reaction Status Date / Time No Known Allergies Allergy Verified 10/29/16 14:13 Home Medications Medication Instructions Recorded Confirmed Last Taken Type Century Adults 50+ Tablet 1 tab PO DAILY 06/16/15 10/29/16 06/15/15 History Losartan 50 mg PO DAILY 06/16/15 10/29/16 06/15/15 History glipiZIDE 10 mg PO TIDWM 06/16/15 10/29/16 06/15/15 History Gabapentin [Neurontin] 100 mg PO QHS 10/29/16 10/29/16 Unknown History Naproxen/Esomeprazole Mag [Vimovo 2 each PO DAILY 10/29/16 10/29/16 Unknown History 500-20 mg Tablet] Active Meds: Active Medications Acetaminophen (Tylenol) 650 mg PO Q4H PRN PRN Reason: Pain, Mild (1-3) Acetaminophen/Hydrocodone Bitart ([place] 5/325) 1 each PO Q4H PRN PRN Reason: Pain , Severe (7-10) Last Admin: 10/31/16 13:06 Dose: 1 each Dextrose (D50w (25gm)) 50 ml IV PRN PRN PRN Reason: Hypoglycemia Gabapentin (Neurontin) 100 mg PO QHS [facility] Last Admin: 10/30/16 21:40 Dose: 100 mg Vancomycin HCl (Vancomycin/Ns 1 Gm/250 Ml) 1 gm in 250 mls @ 125 mls/hr IV Q24H [facility] Last Admin: 10/30/16 17:11 Dose: 125 mls/hr Ceftriaxone Sodium (Rocephin/Ns 1 Gm/50 Ml) 1 gm in 50 mls @ 100 mls/hr IV Q24H JASON PRN Reason: Protocol Insulin Aspart (Novolog) 0 units SUB-Q ACHS JASON PRN Reason: Protocol Last Admin: 10/31/16 13:08 Dose: Not Given Review of Systems All systems: negative Exam - Constitutional Vitals: Temp Pulse Resp BP Pulse Ox 99.9 F H 70 18 115/70 96 10/31/16 08:15 10/31/16 08:15 10/31/16 08:15 10/31/16 08:15 10/31/16 08:15 General appearance: Present: no acute distress - EENT Eyes: Present: EOM intact ENT: hearing intact - Neck Neck: Present: supple - Respiratory Respiratory effort: normal - Extremities Extremities: no ischemia, pulses intact (easily palpable dorsalis pedis and posterior tibial pulse of the left lower extremity), normal temperature Extremity abnormal: ulceration (he is a moderately large fluid-filled blister of the left lateral malleolus with thickened necrosing skin midportion of the blister, he has rubor extending up to the mid lower leg, nonblanching) - Psychiatric Psychiatric: appropriate mood/affect, intact judgment & insight, cooperative - Neurologic Neurologic: no focal deficits Results - Labs CBC & Chem 7: 10/31/16 05:20 10/31/16 05:20 Labs: Abnormal lab results 10/30/16 10/31/16 10/31/16 Range/Units 21:40 05:20 05:20 RBC 3.48 L (3.65-5.03) M/mm3 Hgb 10.9 L (11.8-15.2) gm/dl Hct 31.4 L (35.5-45.6) % MCHC 35 H (32-34) % RDW 16.5 H (13.2-15.2) % Plt Count 34 L (140-440) K/mm3 Lymph % (Auto) 10.8 L (13.4-35.0) % [place] % (Auto) 16.0 H (0.0-7.3) % Lymph # 0.6 L (1.2-5.4) K/mm3 [place] # 0.9 H (0.0-0.8) K/mm3 Seg Neutrophils % 71.2 H (40.0-70.0) % Chloride 109.2 H (98-107) mmol/L Carbon Dioxide 20 L (22-30) mmol/L POC Glucose 135 H (70-105) Calcium 7.7 L (8.4-10.2) mg/dL AST 41 H (5-40) units/L Alkaline Phosphatase 194 H (35-129) units/L Albumin 1.8 L (3.9-5) g/dL 10/31/16 Range/Units 11:21 RBC (3.65-5.03) M/mm3 Hgb (11.8-15.2) gm/dl Hct (35.5-45.6) % MCHC (32-34) % RDW (13.2-15.2) % Plt Count (140-440) K/mm3 Lymph % (Auto) (13.4-35.0) % [place] % (Auto) (0.0-7.3) % Lymph # (1.2-5.4) K/mm3 [place] # (0.0-0.8) K/mm3 Seg Neutrophils % (40.0-70.0) % Chloride (98-107) mmol/L Carbon Dioxide (22-30) mmol/L POC Glucose 190 H (70-105) Calcium (8.4-10.2) mg/dL AST (5-40) units/L Alkaline Phosphatase (35-129) units/L Albumin (3.9-5) g/dL Assessment and Plan Pt was admitted with a 2 wk h/o of progressively deteriorating ulceration to the left lateral ankle. Orthopedics have been consulted for wound management. A vascular surgery consult was requested to eval for possible underlying PAD which could result in delayed distal wound healing. He has easily palp left DP and PT. A non-invasive arterial duplex appears to show multiphasic arterial flow , which should be adequate to facilitate distal wound healing. Thank you will see again as needed. - Patient Problems (1) Ulcer of ankle Current Visit: Yes Status: Acute Qualifiers: Laterality: L Non-pressure ulcer stage: N (2) Hypertension Current Visit: Yes Status: Acute Qualifiers: Hypertension type: H (3) Diabetes Current Visit: Yes Status: Acute Qualifiers: Diabetes mellitus type: D Diabetes mellitus complication status: D Diabetes mellitus complication detail: D Diabetic retinopathy severity: D Proliferative retinopathy type: P Diabetes mellitus macular edema: D Diabetes mellitus correction insulin use: D Laterality: L Chronic kidney disease stage: C (4) Acute kidney injury Current Visit: Yes Status: Acute (5) Esophageal varices Current Visit: No Status: Acute Qualifiers: Esophageal varices type: E Esophageal varices bleeding: E (6) Hepatic cirrhosis due to chronic hepatitis C infection Current Visit: No Status: Acute
[2016-10-31] MEDS: VANCOMYCIN/NS 1 GM/250 ML 1 GM/250 ML BAG IV SCH (19:48)
[2016-10-31] MEDS: NEURONTIN PO SCH (21:32)
[2016-11-01 06:12] LABS: Basophils % (Auto) 0.3 % (0.0-1.8); Eosinophils % (Auto) 2.7 % (0.0-4.3); Hematocrit 31.5 % (35.5-45.6); Hemoglobin 10.8 gm/dl (11.8-15.2); Mean Corpuscular HGB Conc 34 % (32-34); Mean Corpuscular Hemoglobin 31 pg (28-32); Mean Corpuscular Volume 91 fl (84-94); Red Blood Count 3.47 M/mm3 (3.65-5.03); Red Cell Distribution Width 16.7 % (13.2-15.2); White Blood Count 6.1 K/mm3 (4.5-11.0)
[2016-11-01 06:16] LABS: Platelet Count 35 K/mm3 (140-440)
[2016-11-01 07:56] LABS: Alanine Aminotransferase 16 units/L (7-56); Albumin/Globulin Ratio 0.4 %; Alkaline Phosphatase 178 units/L (35-129); Anion Gap 18 mmol/L; Blood Urea Nitrogen 11 mg/dL (9-20); Calcium 8.2 mg/dL (8.4-10.2); Carbon Dioxide 20 mmol/L (22-30); Chloride 106.4 mmol/L (98-107); Glucose 85 mg/dL (75-100); Potassium 3.9 mmol/L (3.6-5.0); Sodium 140 mmol/L (137-145); Total Protein 7.1 g/dL (6.3-8.2)
--- NOTE | 2016-11-01 09:11 | Consultation ---
History of Present Illness Consult date: 10/31/16 Reason for consult: other (Abscess of left lateral malleolus) Chief complaint: Abscess of left lateral malleolus - History of present illness History of present illness: 66 yo male who noted pain and swelling of his left lateral ankle about two weeks ago. This got progressively worse and he presented for evaluation and treatment. He is diabetic. He does not know the results of his last A1c. He also has HTN. Arterial dopplers have been performed and reveal good blood flow sufficient for healing. Dr. Allen also performed an ? I&D vs FNA of the left lateral malleolar area earlier today with the return of a bloody, non-foul smelling aspirate. He recommended continuation of the pt's IV antibiotics. Past History Past Medical History: No medical history, diabetes, hepatitis (type C), hypertension, other (chronic liver disease, ascites, esophageal varices,) Past Surgical History: Other (left ankle surgery approximately 25 years ago) Social history: lives with family, smoking (smokes approximately 10 cigarettes per day) Family history: hypertension Medications and Allergies Allergies Allergy/AdvReac Type Severity Reaction Status Date / Time No Known Allergies Allergy Verified 10/29/16 14:13 Home Medications Medication Instructions Recorded Confirmed Last Taken Type Century Adults 50+ Tablet 1 tab PO DAILY 06/16/15 10/29/16 06/15/15 History Losartan 50 mg PO DAILY 06/16/15 10/29/16 06/15/15 History glipiZIDE 10 mg PO TIDWM 06/16/15 10/29/16 06/15/15 History Gabapentin [Neurontin] 100 mg PO QHS 10/29/16 10/29/16 Unknown History Naproxen/Esomeprazole Mag [Vimovo 2 each PO DAILY 10/29/16 10/29/16 Unknown History 500-20 mg Tablet] Active Meds: Active Medications Acetaminophen (Tylenol) 650 mg PO Q4H PRN PRN Reason: Pain, Mild (1-3) Acetaminophen/Hydrocodone Bitart ([place] 5/325) 1 each PO Q4H PRN PRN Reason: Pain , Severe (7-10) Last Admin: 10/31/16 21:32 Dose: 1 each Dextrose (D50w (25gm)) 50 ml IV PRN PRN PRN Reason: Hypoglycemia Gabapentin (Neurontin) 100 mg PO QHS [facility] Last Admin: 10/31/16 21:32 Dose: 100 mg Vancomycin HCl (Vancomycin/Ns 1 Gm/250 Ml) 1 gm in 250 mls @ 125 mls/hr IV Q24H [facility] Last Admin: 10/31/16 19:48 Dose: 125 mls/hr Ceftriaxone Sodium (Rocephin/Ns 1 Gm/50 Ml) 1 gm in 50 mls @ 100 mls/hr IV Q24H [facility] PRN Reason: Protocol Insulin Aspart (Novolog) 0 units SUB-Q ACHS [facility] PRN Reason: Protocol Last Admin: 10/31/16 23:58 Dose: Not Given Review of Systems All systems: negative Exam Vital Signs Temp Pulse Resp BP Pulse Ox 98.3 F 94 H 18 125/76 100 10/29/16 14:19 10/29/16 14:19 10/29/16 14:19 10/29/16 14:19 10/29/16 14:19 - General physical appearance Positive: well developed, well nourished, no distress - Eyes Positive: PERRL, normal occular movement - ENT Positive: normal pinna, normal nares, normal mucosa, no hearing loss, no congestion - Neck Positive: no masses, no bruits, trachea midline, no venous distension - Respiratory Positive: normal expansion, normal respiratory effort, clear to auscultation - Cardiovascular Rhythm: regular Heart Sounds: Present: S1 & S2. Absent: rub, click - Extremities Extremities: no ischemia, pulses symmetrical, No edema - Breasts Breasts: deferred, normal, no mass, no skin changes - Abdomen Abdomen: Present: soft, bowel sounds normal. Absent: tender, distended Hernia: none - Genitourinary Male Genitourinary: normal - Integumentary no rash, no growths, no abnormal pigmentation, other (There is a 3 cm abscess located over the left lateral malleolus. I cannot appreciate an I&D wound. The surrounding skin is mildly cellulitic. The left plantar heel is also inflamed with a possible underlying abscess but I cannot appreciate any definite fluctuance.) - Neurologic Neurologic: alert and oriented to time, place and person, motor strength and sensation are grossly intact - Musculoskeletal normal gait, normal posture - Psychiatric Psychiatric: appropriate mood/affect, intact judgment & insight Results - Labs 11/01/16 05:27 11/01/16 06:59 Abnormal lab results 10/31/16 10/31/16 10/31/16 Range/Units 11:21 17:02 23:19 RBC (3.65-5.03) M/mm3 Hgb (11.8-15.2) gm/dl Hct (35.5-45.6) % RDW (13.2-15.2) % Plt Count (140-440) K/mm3 Lymph % (Auto) (13.4-35.0) % [place] % (Auto) (0.0-7.3) % Lymph # (1.2-5.4) K/mm3 Seg Neutrophils % (40.0-70.0) % Carbon Dioxide (22-30) mmol/L POC Glucose 190 H 184 H 157 H (70-105) Calcium (8.4-10.2) mg/dL Total Bilirubin (0.1-1.2) mg/dL AST (5-40) units/L Alkaline Phosphatase (35-129) units/L Albumin (3.9-5) g/dL 11/01/16 11/01/16 Range/Units 05:27 06:59 RBC 3.47 L (3.65-5.03) M/mm3 Hgb 10.8 L (11.8-15.2) gm/dl Hct 31.5 L (35.5-45.6) % RDW 16.7 H (13.2-15.2) % Plt Count 35 L (140-440) K/mm3 Lymph % (Auto) 11.0 L (13.4-35.0) % [place] % (Auto) 13.8 H (0.0-7.3) % Lymph # 0.7 L (1.2-5.4) K/mm3 Seg Neutrophils % 72.2 H (40.0-70.0) % Carbon Dioxide 20 L (22-30) mmol/L POC Glucose (70-105) Calcium 8.2 L (8.4-10.2) mg/dL Total Bilirubin 1.50 H (0.1-1.2) mg/dL AST 42 H (5-40) units/L Alkaline Phosphatase 178 H (35-129) units/L Albumin 2.0 L (3.9-5) g/dL Diabetes panel 11/01/16 Range/Units 06:59 Sodium 140 (137-145) mmol/L Potassium 3.9 (3.6-5.0) mmol/L Chloride 106.4 (98-107) mmol/L Carbon Dioxide 20 L (22-30) mmol/L BUN 11 (9-20) mg/dL Creatinine 1.1 (0.8-1.5) mg/dL Glucose 85 (75-100) mg/dL Calcium 8.2 L (8.4-10.2) mg/dL AST 42 H (5-40) units/L ALT 16 (7-56) units/L Alkaline Phosphatase 178 H (35-129) units/L Total Protein 7.1 (6.3-8.2) g/dL Albumin 2.0 L (3.9-5) g/dL Calcium panel 11/01/16 Range/Units 06:59 Calcium 8.2 L (8.4-10.2) mg/dL Albumin 2.0 L (3.9-5) g/dL Pituitary panel 11/01/16 Range/Units 06:59 Sodium 140 (137-145) mmol/L Potassium 3.9 (3.6-5.0) mmol/L Chloride 106.4 (98-107) mmol/L Carbon Dioxide 20 L (22-30) mmol/L BUN 11 (9-20) mg/dL Creatinine 1.1 (0.8-1.5) mg/dL Glucose 85 (75-100) mg/dL Calcium 8.2 L (8.4-10.2) mg/dL Adrenal panel 11/01/16 Range/Units 06:59 Sodium 140 (137-145) mmol/L Potassium 3.9 (3.6-5.0) mmol/L Chloride 106.4 (98-107) mmol/L Carbon Dioxide 20 L (22-30) mmol/L BUN 11 (9-20) mg/dL Creatinine 1.1 (0.8-1.5) mg/dL Glucose 85 (75-100) mg/dL Calcium 8.2 L (8.4-10.2) mg/dL Total Bilirubin 1.50 H (0.1-1.2) mg/dL AST 42 H (5-40) units/L ALT 16 (7-56) units/L Alkaline Phosphatase 178 H (35-129) units/L Total Protein 7.1 (6.3-8.2) g/dL Albumin 2.0 L (3.9-5) g/dL Assessment and Plan I would consider I&D of his left lateral mallolar abscess once his platelet count has improved to > 50,000. I would continue his IV antibiotics, elevation and strict DM control. I will repeat his CBC. - Patient Problems (1) Abscess of bursa, left ankle and foot Onset Date: 10/17/16 Current Visit: Yes Status: Acute (2) Thrombocytopenia Onset Date: 11/01/16 Current Visit: Yes Status: Acute Plan to address problem: Repeat CBC today.
[2016-11-01] MEDS: NOVOLOG SUB-Q SCH ×4 (09:30→22:40)
[2016-11-01 09:59] LABS: INR 1.23 (0.87-1.13)
--- NOTE | 2016-11-01 10:31 | Progress Note ---
Assessment and Plan Assessment and plan: Sepsis due to left ankle/leg cellulitis. Continue IV vancomycin, consulted ID for antibiotic management. Plain x-rays of his left ankle which reveal no evidence of osteomyelitis. Left ankle abscess/cellulitis. Patient is status post I&D of the left ankle by orthopedics. Recommendations are for continued IV antibiotics. Arterial Doppler reveals no evidence of peripheral vascular disease to prevent wound healing. Uncontrolled type 2 diabetes mellitus. Continue scale insulin and ADA diet Hyperammonemia. Continue lactulose, and daily ammonia levels. Severe protein calorie malnutrition, albumin 1.8, BMI 25. Dietitian consult. Chronic liver disease: ? Consult GI Thrombocytopenia. Etiology most likely due to liver disease: Stop subcutaneous heparin DVT prophylaxis, await with GI recommendations. Hematology consultation Hypomagnesemia: Replace and recheck in a.m. Anemia of chronic disease: Continue to monitor DVT prophylaxis: SCDs only Full code History Interval history: No new issues overnight. Hospitalist Physical - Constitutional Vitals: Temp Pulse Resp BP Pulse Ox 98.8 F 75 20 118/56 100 11/01/16 08:00 11/01/16 08:00 11/01/16 08:00 11/01/16 08:00 11/01/16 08:00 General appearance: Present: no acute distress - EENT Eyes: Present: PERRL, EOM intact ENT: hearing intact, clear oral mucosa, dentition normal - Neck Neck: Present: supple, normal ROM - Respiratory Respiratory effort: normal Respiratory: bilateral: CTA - Cardiovascular Rhythm: regular Heart Sounds: Present: S1 & S2. Absent: gallop, rub - Extremities Extremities: no ischemia, No edema, Full ROM Extremity abnormal: other (LLE dressing with dressing intact--bloody) - Abdominal General gastrointestinal: soft, non-tender, non-distended, normal bowel sounds - Integumentary Integumentary: Present: clear, warm, dry - Neurologic Neurologic: CNII-XII intact, moves all extremities Results - Labs CBC & Chem 7: 11/01/16 05:27 11/01/16 06:59 Labs: Laboratory Last Values WBC 6.1 K/mm3 (4.5-11.0) 11/01/16 05:27 RBC 3.47 M/mm3 (3.65-5.03) L 11/01/16 05:27 Hgb 10.8 gm/dl (11.8-15.2) L 11/01/16 05:27 Hct 31.5 % (35.5-45.6) L 11/01/16 05:27 MCV 91 fl (84-94) 11/01/16 05:27 MCH 31 pg (28-32) 11/01/16 05:27 MCHC 34 % (32-34) 11/01/16 05:27 RDW 16.7 % (13.2-15.2) H 11/01/16 05:27 Plt Count 35 K/mm3 (140-440) L 11/01/16 05:27 Lymph % (Auto) 11.0 % (13.4-35.0) L 11/01/16 05:27 [place] % (Auto) 13.8 % (0.0-7.3) H 11/01/16 05:27 Eos % (Auto) 2.7 % (0.0-4.3) 11/01/16 05:27 Baso % (Auto) 0.3 % (0.0-1.8) 11/01/16 05:27 Lymph # 0.7 K/mm3 (1.2-5.4) L 11/01/16 05:27 [place] # 0.8 K/mm3 (0.0-0.8) 11/01/16 05:27 Eos # 0.2 K/mm3 (0.0-0.4) 11/01/16 05:27 Baso # 0.0 K/mm3 (0.0-0.1) 11/01/16 05:27 Seg Neutrophils % 72.2 % (40.0-70.0) H 11/01/16 05:27 Seg Neutrophils # 4.4 K/mm3 (1.8-7.7) 11/01/16 05:27 PT 16.1 Sec. (12.2-14.9) H 11/01/16 09:17 INR 1.23 (0.87-1.13) H 11/01/16 09:17 Sodium 140 mmol/L (137-145) 11/01/16 06:59 Potassium 3.9 mmol/L (3.6-5.0) 11/01/16 06:59 Chloride 106.4 mmol/L (98-107) 11/01/16 06:59 Carbon Dioxide 20 mmol/L (22-30) L 11/01/16 06:59 Anion Gap 18 mmol/L 11/01/16 06:59 BUN 11 mg/dL (9-20) 11/01/16 06:59 Creatinine 1.1 mg/dL (0.8-1.5) 11/01/16 06:59 Estimated GFR > 60 ml/min 11/01/16 06:59 BUN/Creatinine Ratio 10.00 % 11/01/16 06:59 Glucose 85 mg/dL (75-100) 11/01/16 06:59 POC Glucose 81 (70-105) 11/01/16 05:21 Hemoglobin A1c 5.3 % (4-6) 10/29/16 16:02 Lactic Acid 1.20 mmol/L (0.7-2.0) 10/31/16 05:20 Calcium 8.2 mg/dL (8.4-10.2) L 11/01/16 06:59 Phosphorus 3.80 mg/dL (2.5-4.5) 10/30/16 06:10 Magnesium 1.80 mg/dL (1.7-2.3) 10/31/16 05:20 Total Bilirubin 1.50 mg/dL (0.1-1.2) H 11/01/16 06:59 AST 42 units/L (5-40) H 11/01/16 06:59 ALT 16 units/L (7-56) 11/01/16 06:59 Alkaline Phosphatase 178 units/L (35-129) H 11/01/16 06:59 Ammonia 32.0 umol/L (25-60) 11/01/16 05:27 Total Protein 7.1 g/dL (6.3-8.2) 11/01/16 06:59 Albumin 2.0 g/dL (3.9-5) L 11/01/16 06:59 Albumin/Globulin Ratio 0.4 % 11/01/16 06:59
--- NOTE | 2016-11-01 10:58 | Vascular Lab Report ---
LOWER EXTREMITY ARTERIAL DUPLEX: REASON FOR EXAM: Peripheral arterial disease with ulceration. COMMENTS ON THE RIGHT: Triphasic waveforms are seen proximally. Triphasic waveforms are seen distally. No significant velocity gradients are identified. No focal significant plaque is identified. Findings are consistent with normal perfusion. Findings are consistent with the ability to heal distal wounds. COMMENTS ON THE LEFT: Triphasic waveforms are seen proximally. Monophasic waveforms are seen distally. No significant velocity gradients are identified. No focal significant plaque is identified. Findings are consistent with normal perfusion. Findings are consistent with the ability to heal distal wounds. IMPRESSION: RIGHT: Essentially normal arterial flow. LEFT:Essentially normal arterial flow.
--- NOTE | 2016-11-01 11:05 | Vascular Lab Report ---
LOWER EXTREMITY ARTERIAL PHYSIOLOGIC STUDY: REASON FOR EXAM: Peripheral arterial disease. COMMENTS ON THE RIGHT: Ankle brachial index is 1.25. This value is normal. Toe brachial index is 1.08. This value is normal. Wound healing is likely. Pulse volume recording at the level of the ankle is normal. Exercise testing was not done. COMMENTS ON THE LEFT: Ankle brachial index is 1.18. This value is normal. Toe brachial index is 1.34. This value is normal. Wound healing is likely. Pulse volume recording at the level of the ankle is normal. Exercise testing was not done. IMPRESSION: RIGHT: No hemodynamically significant arterial disease. LEFT:No hemodynamically significant arterial disease.
[2016-11-01] MEDS: NORCO 5/325 PO PRN ×2 (11:25→18:37)
[2016-11-01] MEDS ORDERED: VERSED IV ONE (11:54)
[2016-11-01] MEDS ORDERED: SUBLIMAZE IV ONE (11:54)
[2016-11-01] MEDS: ROCEPHIN/NS 1 GM/50 ML 1 GM/50 ML BAG IV SCH ×2 (13:00→18:33)
--- NOTE | 2016-11-01 13:49 | Cat Scan Report ---
CT guided aspiration of left ankle collection. Procedure: Initial images of the left ankle demonstrate extensive soft tissue swelling surrounding the left lateral malleolus. The patient's skin surface was prepped and draped. Local anesthetic was injected in the skin. An 18-gauge needle was introduced into the area of hypodensity. No fluid was aspirated. Despite placing needle in multiple different locations, no fluid was aspirated.
--- NOTE | 2016-11-01 14:39 | Cat Scan Report ---
CT of the left lower extremity with IV contrast. History: Left ankle mass/abscess. Findings: There is extensive subcutaneous edema in the left lower leg, most pronounced in the soft tissues overlying the lateral malleolus. A small crescentic fluid collection is seen adjacent to the lateral malleolus. This measures approximately 2.5 x 1 cm. A small abscess in this region cannot be excluded. An ulceration is seen at this level. There are no bony erosive changes or other evidence of osteomyelitis.
--- NOTE | 2016-11-01 17:18 | Progress Note ---
Assessment and Plan - Patient Problems (1) Mass of left ankle Current Visit: Yes Status: Acute Plan to address problem: 1. Await biopsy/ path results. 2. Blood culture is negative, however will consider an echocardiogram if nothing is revealed on biopsy. 3. Continue Vancomycin and Rocephin for now. Subjective Date of service: 11/01/16 Principal diagnosis: Left Ankle Mass Interval history: Patient went for biopsy/ aspiration of left ankle lesion with no fluid aspirated. Objective - Constitutional Vitals: Vital Signs Temp Pulse Resp BP Pulse Ox 97.3 F L 75 18 111/67 98 11/01/16 16:14 11/01/16 16:14 11/01/16 16:14 11/01/16 16:14 11/01/16 16:14 Temperature -Last 24 Hours Temperature 97.3 F Temperature 97.9 F Temperature 97.9 F Temperature 98.8 F Temperature 97.9 F General appearance: Present: no acute distress - EENT Eyes: no conjunctival injection - Respiratory Respiratory: bilateral: CTA - Cardiovascular Rhythm: regular Heart Sounds: Present: S1 & S2 Extremity abnormal: edema (unchanged local edema of left lateral ankle) - Gastrointestinal General gastrointestinal: Present: soft, non-distended - Integumentary Integumentary: no rash - Neurologic Neurologic: moves all extremities - Psychiatric Psychiatric: appropriate mood/affect - Labs CBC & Chem 7: 11/01/16 05:27 11/01/16 06:59 Labs: Abnormal lab results 10/31/16 11/01/16 11/01/16 Range/Units 23:19 05:27 06:59 RBC 3.47 L (3.65-5.03) M/mm3 Hgb 10.8 L (11.8-15.2) gm/dl Hct 31.5 L (35.5-45.6) % RDW 16.7 H (13.2-15.2) % Plt Count 35 L (140-440) K/mm3 Lymph % (Auto) 11.0 L (13.4-35.0) % [place] % (Auto) 13.8 H (0.0-7.3) % Lymph # 0.7 L (1.2-5.4) K/mm3 Seg Neutrophils % 72.2 H (40.0-70.0) % PT (12.2-14.9) Sec. INR (0.87-1.13) Carbon Dioxide 20 L (22-30) mmol/L POC Glucose 157 H (70-105) Calcium 8.2 L (8.4-10.2) mg/dL Total Bilirubin 1.50 H (0.1-1.2) mg/dL AST 42 H (5-40) units/L Alkaline Phosphatase 178 H (35-129) units/L Albumin 2.0 L (3.9-5) g/dL 11/01/16 11/01/16 Range/Units 09:17 16:14 RBC (3.65-5.03) M/mm3 Hgb (11.8-15.2) gm/dl Hct (35.5-45.6) % RDW (13.2-15.2) % Plt Count (140-440) K/mm3 Lymph % (Auto) (13.4-35.0) % [place] % (Auto) (0.0-7.3) % Lymph # (1.2-5.4) K/mm3 Seg Neutrophils % (40.0-70.0) % PT 16.1 H (12.2-14.9) Sec. INR 1.23 H (0.87-1.13) Carbon Dioxide (22-30) mmol/L POC Glucose 230 H (70-105) Calcium (8.4-10.2) mg/dL Total Bilirubin (0.1-1.2) mg/dL AST (5-40) units/L Alkaline Phosphatase (35-129) units/L Albumin (3.9-5) g/dL - Imaging and cardiology Other: report reviewed (CT Left Lower Extremity - soft tissue swelling over left malleolus measuring ~ 2.5 X 1cm; abscess cannot be excluded)
[2016-11-01] MEDS: VANCOMYCIN/NS 1 GM/250 ML 1 GM/250 ML BAG IV SCH ×2 (18:00→21:49)
[2016-11-01] MEDS: NEURONTIN PO SCH (21:47)
[2016-11-02] MEDS: NORCO 5/325 PO PRN ×4 (01:10→22:46)
[2016-11-02 06:55] LABS: Basophils % (Auto) 0.2 % (0.0-1.8); Eosinophils % (Auto) 3.3 % (0.0-4.3); Hematocrit 32.2 % (35.5-45.6); Hemoglobin 11.2 gm/dl (11.8-15.2); Mean Corpuscular HGB Conc 35 % (32-34); Mean Corpuscular Hemoglobin 31 pg (28-32); Mean Corpuscular Volume 90 fl (84-94); Red Cell Distribution Width 16.4 % (13.2-15.2); White Blood Count 5.7 K/mm3 (4.5-11.0)
[2016-11-02 06:57] LABS: Platelet Count 39 K/mm3 (140-440)
[2016-11-02 07:08] LABS: Anion Gap 14 mmol/L; BUN/Creatinine Ratio 11.11; Blood Urea Nitrogen 10 mg/dL (9-20); Calcium 8.2 mg/dL (8.4-10.2); Carbon Dioxide 23 mmol/L (22-30); Chloride 105.2 mmol/L (98-107); Glucose 147 mg/dL (75-100); Potassium 3.8 mmol/L (3.6-5.0); Sodium 138 mmol/L (137-145)
[2016-11-02] MEDS: NOVOLOG SUB-Q SCH ×4 (07:30→22:47)
--- NOTE | 2016-11-02 09:55 | Hem/Onc Consultation ---
History of Present Illness - Reason for Consult Consult date: 11/02/16 - History of Present Illness Dictated. Platelet below possibly secondary to cirrhosis of the liver and hepatitis C. We will transfuse platelets although he may not show a good response because of the fact that he has cirrhosis of the liver and hepatitis C. Past History Past Medical History: No medical history, diabetes, hepatitis (type C), hypertension, other (chronic liver disease, ascites, esophageal varices,) Past Surgical History: Other (left ankle surgery approximately 25 years ago) Social history: lives with family, smoking (smokes approximately 10 cigarettes per day) Family history: hypertension Medications and Allergies Allergies Allergy/AdvReac Type Severity Reaction Status Date / Time No Known Allergies Allergy Verified 10/29/16 14:13 Home Medications Medication Instructions Recorded Confirmed Last Taken Type Century Adults 50+ Tablet 1 tab PO DAILY 06/16/15 10/29/16 06/15/15 History Losartan 50 mg PO DAILY 06/16/15 10/29/16 06/15/15 History glipiZIDE 10 mg PO TIDWM 06/16/15 10/29/16 06/15/15 History Gabapentin [Neurontin] 100 mg PO QHS 10/29/16 10/29/16 Unknown History Naproxen/Esomeprazole Mag [Vimovo 2 each PO DAILY 10/29/16 10/29/16 Unknown History 500-20 mg Tablet] Active Meds: Active Medications Acetaminophen (Tylenol) 650 mg PO Q4H PRN PRN Reason: Pain, Mild (1-3) Acetaminophen/Hydrocodone Bitart ([place] 5/325) 1 each PO Q4H PRN PRN Reason: Pain , Severe (7-10) Last Admin: 11/02/16 09:14 Dose: 1 each Dextrose (D50w (25gm)) 50 ml IV PRN PRN PRN Reason: Hypoglycemia Gabapentin (Neurontin) 100 mg PO QHS [facility] Last Admin: 11/01/16 21:47 Dose: 100 mg Ceftriaxone Sodium (Rocephin/Ns 1 Gm/50 Ml) 1 gm in 50 mls @ 100 mls/hr IV Q24H [facility] PRN Reason: Protocol Last Admin: 11/01/16 18:33 Dose: 100 mls/hr Vancomycin HCl (Vancomycin/Ns 1 Gm/250 Ml) 1 gm in 250 mls @ 125 mls/hr IV Q24H [facility] Last Admin: 11/01/16 21:49 Dose: 125 mls/hr Sodium Chloride (Nacl 0.9% 500 Ml) 500 mls @ 0 mls/hr IV ONCE ONE PRN Reason: As Directed Stop: 11/02/16 09:45 Insulin Aspart (Novolog) 0 units SUB-Q ACHS [facility] PRN Reason: Protocol Last Admin: 11/02/16 07:30 Dose: Not Given Exam - Constitutional Vitals: Last Vital Signs Temp 98.1 F 11/02/16 08:00 Pulse 82 11/02/16 08:00 Resp 22 11/02/16 08:00 BP 119/79 11/02/16 08:00 Pulse Ox 97 11/02/16 08:00 Results - Labs lab Results: Laboratory Results - last 24 hr 11/01/16 11/01/16 11/01/16 09:17 16:14 21:31 WBC RBC Hgb Hct MCV MCH MCHC RDW Plt Count Lymph % (Auto) [place] % (Auto) Eos % (Auto) Baso % (Auto) Lymph # [place] # Eos # Baso # Seg Neutrophils % Seg Neutrophils # PT 16.1 H INR 1.23 H Sodium Potassium Chloride Carbon Dioxide Anion Gap BUN Creatinine Estimated GFR BUN/Creatinine Ratio Glucose POC Glucose 230 H 241 H Calcium Ammonia 11/02/16 11/02/16 11/02/16 05:35 06:34 06:34 WBC 5.7 RBC 3.60 L Hgb 11.2 L Hct 32.2 L MCV 90 MCH 31 MCHC 35 H RDW 16.4 H Plt Count 39 L Lymph % (Auto) 9.5 L [place] % (Auto) 14.5 H Eos % (Auto) 3.3 Baso % (Auto) 0.2 Lymph # 0.5 L [place] # 0.8 Eos # 0.2 Baso # 0.0 Seg Neutrophils % 72.5 H Seg Neutrophils # 4.1 PT INR Sodium Potassium Chloride Carbon Dioxide Anion Gap BUN Creatinine Estimated GFR BUN/Creatinine Ratio Glucose POC Glucose 165 H Calcium Ammonia 43.0 11/02/16 06:34 WBC RBC Hgb Hct MCV MCH MCHC RDW Plt Count Lymph % (Auto) [place] % (Auto) Eos % (Auto) Baso % (Auto) Lymph # [place] # Eos # Baso # Seg Neutrophils % Seg Neutrophils # PT INR Sodium 138 Potassium 3.8 Chloride 105.2 Carbon Dioxide 23 Anion Gap 14 BUN 10 Creatinine 0.9 Estimated GFR > 60 BUN/Creatinine Ratio 11.11 Glucose 147 H POC Glucose Calcium 8.2 L Ammonia
[2016-11-02] MEDS ORDERED: NACL 0.9% 500 ML 500 ML IV NR (10:00)
--- NOTE | 2016-11-02 11:33 | Progress Note ---
Assessment and Plan Assessment and plan: Sepsis due to left ankle/leg cellulitis. Continue IV vancomycin, consulted ID for antibiotic management. Plain x-rays of his left ankle which reveal no evidence of osteomyelitis. Left ankle abscess/cellulitis. Patient is status post I&D of the left ankle by orthopedics. Await biopsy/path results. Recommendations are for continued IV antibiotics. Arterial Doppler reveals no evidence of peripheral vascular disease to prevent wound healing. Uncontrolled type 2 diabetes mellitus. Continue scale insulin and ADA diet Hyperammonemia. Continue lactulose, and daily ammonia levels. Severe protein calorie malnutrition, albumin 1.8, BMI 25. Dietitian consult. Chronic liver disease. Thrombocytopenia. Etiology most likely due to liver disease and hep C. Hematology following. Hypomagnesemia. Replace and recheck in a.m. Anemia of chronic disease. Continue to monitor DVT prophylaxis: SCDs only given thrombocytopenia Full code History Interval history: No new issues overnight. Hospitalist Physical - Constitutional Vitals: Temp Pulse Resp BP Pulse Ox 98.1 F 82 22 119/79 97 11/02/16 08:00 11/02/16 08:00 11/02/16 08:00 11/02/16 08:00 11/02/16 08:00 General appearance: Present: no acute distress - EENT Eyes: Present: PERRL, EOM intact ENT: hearing intact, clear oral mucosa, dentition normal - Neck Neck: Present: supple, normal ROM - Respiratory Respiratory effort: normal Respiratory: bilateral: CTA - Cardiovascular Rhythm: regular Heart Sounds: Present: S1 & S2. Absent: gallop, rub - Extremities Extremities: no ischemia, No edema, Full ROM - Abdominal General gastrointestinal: soft, non-tender, non-distended, normal bowel sounds - Integumentary Integumentary: Present: clear, warm, dry - Neurologic Neurologic: CNII-XII intact, moves all extremities Results - Labs CBC & Chem 7: 11/02/16 06:34 11/02/16 06:34 Labs: Laboratory Last Values WBC 5.7 K/mm3 (4.5-11.0) 11/02/16 06:34 RBC 3.60 M/mm3 (3.65-5.03) L 11/02/16 06:34 Hgb 11.2 gm/dl (11.8-15.2) L 11/02/16 06:34 Hct 32.2 % (35.5-45.6) L 11/02/16 06:34 MCV 90 fl (84-94) 11/02/16 06:34 MCH 31 pg (28-32) 11/02/16 06:34 MCHC 35 % (32-34) H 11/02/16 06:34 RDW 16.4 % (13.2-15.2) H 11/02/16 06:34 Plt Count 39 K/mm3 (140-440) L 11/02/16 06:34 Lymph % (Auto) 9.5 % (13.4-35.0) L 11/02/16 06:34 [place] % (Auto) 14.5 % (0.0-7.3) H 11/02/16 06:34 Eos % (Auto) 3.3 % (0.0-4.3) 11/02/16 06:34 Baso % (Auto) 0.2 % (0.0-1.8) 11/02/16 06:34 Lymph # 0.5 K/mm3 (1.2-5.4) L 11/02/16 06:34 [place] # 0.8 K/mm3 (0.0-0.8) 11/02/16 06:34 Eos # 0.2 K/mm3 (0.0-0.4) 11/02/16 06:34 Baso # 0.0 K/mm3 (0.0-0.1) 11/02/16 06:34 Seg Neutrophils % 72.5 % (40.0-70.0) H 11/02/16 06:34 Seg Neutrophils # 4.1 K/mm3 (1.8-7.7) 11/02/16 06:34 PT 16.1 Sec. (12.2-14.9) H 11/01/16 09:17 INR 1.23 (0.87-1.13) H 11/01/16 09:17 Sodium 138 mmol/L (137-145) 11/02/16 06:34 Potassium 3.8 mmol/L (3.6-5.0) 11/02/16 06:34 Chloride 105.2 mmol/L (98-107) 11/02/16 06:34 Carbon Dioxide 23 mmol/L (22-30) 11/02/16 06:34 Anion Gap 14 mmol/L 11/02/16 06:34 BUN 10 mg/dL (9-20) 11/02/16 06:34 Creatinine 0.9 mg/dL (0.8-1.5) 11/02/16 06:34 Estimated GFR > 60 ml/min 11/02/16 06:34 BUN/Creatinine Ratio 11.11 % 11/02/16 06:34 Glucose 147 mg/dL (75-100) H 11/02/16 06:34 POC Glucose 165 (70-105) H 11/02/16 05:35 Hemoglobin A1c 5.3 % (4-6) 10/29/16 16:02 Lactic Acid 1.20 mmol/L (0.7-2.0) 10/31/16 05:20 Calcium 8.2 mg/dL (8.4-10.2) L 11/02/16 06:34 Phosphorus 3.80 mg/dL (2.5-4.5) 10/30/16 06:10 Magnesium 1.80 mg/dL (1.7-2.3) 10/31/16 05:20 Total Bilirubin 1.50 mg/dL (0.1-1.2) H 11/01/16 06:59 AST 42 units/L (5-40) H 11/01/16 06:59 ALT 16 units/L (7-56) 11/01/16 06:59 Alkaline Phosphatase 178 units/L (35-129) H 11/01/16 06:59 Ammonia 43.0 umol/L (25-60) 11/02/16 06:34 Total Protein 7.1 g/dL (6.3-8.2) 11/01/16 06:59 Albumin 2.0 g/dL (3.9-5) L 11/01/16 06:59 Albumin/Globulin Ratio 0.4 % 11/01/16 06:59 Blood Type O POSITIVE 11/02/16 10:22
--- NOTE | 2016-11-02 12:15 | Progress Note ---
Assessment and Plan - Patient Problems (1) Mass of left ankle Current Visit: Yes Status: Acute Plan to address problem: 1. Await path and micro results. 2. Continue empiric Vancomycin and Rocephin for a presumptive diagnosis of abscess. (2) Hepatic cirrhosis due to chronic hepatitis C infection Current Visit: No Status: Acute Plan to address problem: 1. Ideally patient should follow-up as an outpatient for treatment. I am happy to arrange this with a hepatitis specialist (Dr. Jose Narayanan) within my office. 2. I will check a viral load and genotype to confirm his chronic status. 3. I provided the patient with contact information for the office. Subjective Date of service: 11/02/16 Principal diagnosis: Left Ankle Mass Interval history: Afebrile. No new events. Objective - Constitutional Vitals: Vital Signs Temp Pulse Resp BP Pulse Ox 98.1 F 82 22 119/79 97 11/02/16 08:00 11/02/16 08:00 11/02/16 08:00 11/02/16 08:00 11/02/16 08:00 Temperature -Last 24 Hours Temperature 98.1 F Temperature 99.2 F Temperature 97.3 F General appearance: Present: no acute distress - EENT Eyes: no conjunctival injection - Respiratory Respiratory effort: normal Respiratory: bilateral: CTA - Cardiovascular Rhythm: regular Heart Sounds: Present: S1 & S2 Extremity abnormal: edema (minimally changed left ankle mass, seropurulent drainage laterally) - Gastrointestinal General gastrointestinal: Present: soft, non-tender, non-distended - Integumentary Integumentary: rash (unchanged chronic hyperpigmentation of both legs) - Neurologic Neurologic: no focal deficits - Psychiatric Psychiatric: appropriate mood/affect - Labs CBC & Chem 7: 11/02/16 06:34 11/02/16 06:34 Labs: Abnormal lab results 11/01/16 11/01/16 11/02/16 Range/Units 16:14 21:31 05:35 RBC (3.65-5.03) M/mm3 Hgb (11.8-15.2) gm/dl Hct (35.5-45.6) % MCHC (32-34) % RDW (13.2-15.2) % Plt Count (140-440) K/mm3 Lymph % (Auto) (13.4-35.0) % [place] % (Auto) (0.0-7.3) % Lymph # (1.2-5.4) K/mm3 Seg Neutrophils % (40.0-70.0) % Glucose (75-100) mg/dL POC Glucose 230 H 241 H 165 H (70-105) Calcium (8.4-10.2) mg/dL 11/02/16 11/02/16 11/02/16 Range/Units 06:34 06:34 11:59 RBC 3.60 L (3.65-5.03) M/mm3 Hgb 11.2 L (11.8-15.2) gm/dl Hct 32.2 L (35.5-45.6) % MCHC 35 H (32-34) % RDW 16.4 H (13.2-15.2) % Plt Count 39 L (140-440) K/mm3 Lymph % (Auto) 9.5 L (13.4-35.0) % [place] % (Auto) 14.5 H (0.0-7.3) % Lymph # 0.5 L (1.2-5.4) K/mm3 Seg Neutrophils % 72.5 H (40.0-70.0) % Glucose 147 H (75-100) mg/dL POC Glucose 191 H (70-105) Calcium 8.2 L (8.4-10.2) mg/dL Microbiology 10/29/16 17:27 Peripheral/Venous Blood Culture - Preliminary NO GROWTH AFTER 72 HOURS 10/29/16 17:27 Peripheral/Venous Blood Culture - Preliminary NO GROWTH AFTER 72 HOURS
[2016-11-02] MEDS: ROCEPHIN/NS 1 GM/50 ML 1 GM/50 ML BAG IV SCH (19:55)
--- NOTE | 2016-11-02 20:52 | Consultation ---
REFERRING PHYSICIAN: Dr. Maurice Moseley. REASON FOR CONSULTATION: Thrombocytopenia. HISTORY OF PRESENT ILLNESS: The patient is a 66-year-old male with diabetes, hypertension, who also has history of cirrhosis of the liver and hepatitis C. He has had ascites, esophageal varices from his cirrhosis of the liver. He has had left heel wound, which had about 25 years ago required skin graft closure. He about 2 weeks prior to admission, noticed swelling over the lateral aspect of the left ankle without any obvious trauma or local injury. The patient on his x-ray showed post-surgical changes and soft tissue edema. He did have incision and drainage at bedside by Dr. Allen and with a return of bloody discharge without any odor. The surgery consult was also done by Dr. Chad Ruiz. The patient has evidence of thrombocytopenia with a platelet count of 35,000. Because of persistent thrombocytopenia, Hematology consult was called. Throughout his admission, his platelets have remained in the 35-39 range. There is no old platelet count in the system that I can compare this to. He also has evidence of elevated bilirubin at 1.5, INR of 1.23. His previous notes reviewed and the patient has had esophageal varices managed by Dr. Shaq Coe in the past. The patient also denied any obvious bleeding as such. PAST MEDICAL HISTORY: Otherwise, as mentioned in history of present illness. SOCIAL HISTORY: He does smoke. Denies any alcohol use. PHYSICAL EXAMINATION: GENERAL: The patient is awake. HEENT: Unremarkable. CHEST: Clear. ABDOMEN: Distended with free fluid noted. EXTREMITIES: Left ankle bandaged. LABORATORY DATA: Shows hemoglobin of 11.2, white count 5.7, platelets of 39,000. Other lab work as mentioned in history of present illness. ASSESSMENT: Thrombocytopenia seems to be secondary to cirrhosis and hepatitis C. PLAN: At this time, we will go ahead and give him platelet transfusion to see if his platelets come up. I feel that he would not have a very good response to platelets because of the fact that he has cirrhosis of the liver, hypersplenism and hepatitis C. We will order post-transfusion platelet count. Check B12, folate also. We will follow. JOB# [id number] GKS/NTS
[2016-11-02] MEDS: VANCOMYCIN/NS 1 GM/250 ML 1 GM/250 ML BAG IV SCH (20:57)
[2016-11-02] MEDS: NEURONTIN PO SCH (22:46)
[2016-11-03 05:33] LABS: Basophils % (Auto) 0.5 % (0.0-1.8); Eosinophils % (Auto) 4.2 % (0.0-4.3); Hematocrit 33.4 % (35.5-45.6); Hemoglobin 11.1 gm/dl (11.8-15.2); Mean Corpuscular HGB Conc 33 % (32-34); Mean Corpuscular Hemoglobin 30 pg (28-32); Mean Corpuscular Volume 91 fl (84-94); Red Blood Count 3.68 M/mm3 (3.65-5.03); Red Cell Distribution Width 16.4 % (13.2-15.2); White Blood Count 5.4 K/mm3 (4.5-11.0)
[2016-11-03 05:37] LABS: Platelet Count 71 K/mm3 (140-440)
[2016-11-03 05:51] LABS: Anion Gap 15 mmol/L; BUN/Creatinine Ratio 8.88; Blood Urea Nitrogen 8 mg/dL (9-20); Calcium 7.9 mg/dL (8.4-10.2); Carbon Dioxide 23 mmol/L (22-30); Chloride 102.8 mmol/L (98-107); Glucose 106 mg/dL (75-100); Potassium 3.6 mmol/L (3.6-5.0); Sodium 137 mmol/L (137-145)
[2016-11-03] MEDS: NORCO 5/325 PO PRN ×2 (08:13→21:23)
--- NOTE | 2016-11-03 08:41 | Progress Note ---
Assessment and Plan - Patient Problems (1) Mass of left ankle Current Visit: Yes Status: Acute Plan to address problem: 1. I am not certain that the biopsy was done of the ankle mass. There is no record or report of it yet. 2. A biopsy for path should be performed, if not already as this mass is not characteristic of a typical abscess. 3. An echocardiogram may be beneficial to rule out potential embolic phenomena. 4. Continue Vancomycin, but will broaded Rocephin to Cefepime empirically. (2) Hepatic cirrhosis due to chronic hepatitis C infection Current Visit: No Status: Acute Plan to address problem: Recommendations as previously noted. Pending results of HCV viral load and genotype. Subjective Date of service: 11/03/16 Principal diagnosis: Left Ankle Mass Interval history: Remains stable, afebrile. Question if tissue was submitted for path. No report available yet. Objective - Constitutional Vitals: Vital Signs Temp Pulse Resp BP Pulse Ox 97.8 F 75 16 129/78 95 11/03/16 08:00 11/03/16 08:00 11/03/16 08:00 11/03/16 08:00 11/03/16 08:00 Temperature -Last 24 Hours Temperature 97.8 F Temperature 97.7 F Temperature 98.9 F Temperature 98.2 F Temperature 98.2 F Temperature 98.0 F General appearance: Present: no acute distress - EENT Eyes: no conjunctival injection - Respiratory Respiratory effort: normal Respiratory: bilateral: CTA - Cardiovascular Rhythm: regular Heart Sounds: Present: S1 & S2 Extremity abnormal: edema (fungating-like swelling over left lateral malleolus is unchanged, no fluctuance, erythema along swelling and up to and including sagastume) - Gastrointestinal General gastrointestinal: Present: soft, non-distended - Integumentary Integumentary: clear, no rash - Psychiatric Psychiatric: appropriate mood/affect - Labs CBC & Chem 7: 11/03/16 04:52 11/03/16 04:52 Labs: Abnormal lab results 11/02/16 11/02/16 11/02/16 Range/Units 10:22 11:59 16:33 Hgb (11.8-15.2) gm/dl Hct (35.5-45.6) % RDW (13.2-15.2) % Plt Count (140-440) K/mm3 Lymph % (Auto) (13.4-35.0) % [place] % (Auto) (0.0-7.3) % Lymph # (1.2-5.4) K/mm3 BUN (9-20) mg/dL Glucose (75-100) mg/dL POC Glucose 191 H 227 H (70-105) Calcium (8.4-10.2) mg/dL Vitamin B12 > 2000 H (211-911) pg/mL 11/02/16 11/03/16 11/03/16 Range/Units 21:39 04:52 04:52 Hgb 11.1 L (11.8-15.2) gm/dl Hct 33.4 L (35.5-45.6) % RDW 16.4 H (13.2-15.2) % Plt Count 71 L (140-440) K/mm3 Lymph % (Auto) 12.5 L (13.4-35.0) % [place] % (Auto) 14.7 H (0.0-7.3) % Lymph # 0.7 L (1.2-5.4) K/mm3 BUN 8 L (9-20) mg/dL Glucose 106 H (75-100) mg/dL POC Glucose 186 H (70-105) Calcium 7.9 L (8.4-10.2) mg/dL Vitamin B12 (211-911) pg/mL 11/03/16 Range/Units 05:46 Hgb (11.8-15.2) gm/dl Hct (35.5-45.6) % RDW (13.2-15.2) % Plt Count (140-440) K/mm3 Lymph % (Auto) (13.4-35.0) % [place] % (Auto) (0.0-7.3) % Lymph # (1.2-5.4) K/mm3 BUN (9-20) mg/dL Glucose (75-100) mg/dL POC Glucose 106 H (70-105) Calcium (8.4-10.2) mg/dL Vitamin B12 (211-911) pg/mL Microbiology 10/29/16 17:27 Peripheral/Venous Blood Culture - Preliminary NO GROWTH AFTER 4 DAYS 10/29/16 17:27 Peripheral/Venous Blood Culture - Preliminary NO GROWTH AFTER 4 DAYS
[2016-11-03] MEDS: NOVOLOG SUB-Q SCH ×4 (08:56→21:56)
[2016-11-03] MEDS: VANCOMYCIN/NS 1 GM/250 ML 1 GM/250 ML BAG IV SCH ×2 (09:57→21:24)
--- NOTE | 2016-11-03 10:26 | Hem/Onc Progress Note ---
Assessment and Plan plt [id number] ok to do surgery if needed. plts will decrease in a few days. Subjective Date of service: 11/03/16 Interval history: pt feels fair. gavi plts Objective - Constitutional Vitals: Last Vital Signs Temp 97.8 F 11/03/16 08:00 Pulse 75 11/03/16 08:00 Resp 16 11/03/16 08:00 BP 129/78 11/03/16 08:00 Pulse Ox 95 11/03/16 08:00 General appearance: no acute distress Performance status: 3-limited selfcare - Neck Neck: supple - Respiratory Respiratory effort: Positive: normal Respiratory: bilateral: diminished - Cardiovascular Rhythm: regular - Gastrointestinal General gastrointestinal: Present: distended - Labs Lab Results: Laboratory Results - last 24 hr 11/02/16 11/02/16 11/02/16 10:22 10:22 10:22 WBC RBC Hgb Hct MCV MCH MCHC RDW Plt Count Lymph % (Auto) [place] % (Auto) Eos % (Auto) Baso % (Auto) Lymph # [place] # Eos # Baso # Seg Neutrophils % Seg Neutrophils # Sodium Potassium Chloride Carbon Dioxide Anion Gap BUN Creatinine Estimated GFR BUN/Creatinine Ratio Glucose POC Glucose Calcium Vitamin B12 > 2000 H Folate 10.68 Vancomycin Trough Blood Type O POSITIVE 11/02/16 11/02/16 11/02/16 11:59 16:33 20:50 WBC RBC Hgb Hct MCV MCH MCHC RDW Plt Count Lymph % (Auto) [place] % (Auto) Eos % (Auto) Baso % (Auto) Lymph # [place] # Eos # Baso # Seg Neutrophils % Seg Neutrophils # Sodium Potassium Chloride Carbon Dioxide Anion Gap BUN Creatinine Estimated GFR BUN/Creatinine Ratio Glucose POC Glucose 191 H 227 H Calcium Vitamin B12 Folate Vancomycin Trough 7.7 Blood Type 11/02/16 11/03/16 11/03/16 21:39 04:52 04:52 WBC 5.4 RBC 3.68 Hgb 11.1 L Hct 33.4 L MCV 91 MCH 30 MCHC 33 RDW 16.4 H Plt Count 71 L Lymph % (Auto) 12.5 L [place] % (Auto) 14.7 H Eos % (Auto) 4.2 Baso % (Auto) 0.5 Lymph # 0.7 L [place] # 0.8 Eos # 0.2 Baso # 0.0 Seg Neutrophils % 68.1 Seg Neutrophils # 3.7 Sodium 137 Potassium 3.6 Chloride 102.8 Carbon Dioxide 23 Anion Gap 15 BUN 8 L Creatinine 0.9 Estimated GFR > 60 BUN/Creatinine Ratio 8.88 Glucose 106 H POC Glucose 186 H Calcium 7.9 L Vitamin B12 Folate Vancomycin Trough Blood Type 11/03/16 05:46 WBC RBC Hgb Hct MCV MCH MCHC RDW Plt Count Lymph % (Auto) [place] % (Auto) Eos % (Auto) Baso % (Auto) Lymph # [place] # Eos # Baso # Seg Neutrophils % Seg Neutrophils # Sodium Potassium Chloride Carbon Dioxide Anion Gap BUN Creatinine Estimated GFR BUN/Creatinine Ratio Glucose POC Glucose 106 H Calcium Vitamin B12 Folate Vancomycin Trough Blood Type
--- NOTE | 2016-11-03 11:17 | Progress Note ---
Assessment and Plan Assessment and plan: Sepsis due to left ankle/leg cellulitis. Continue IV antibiotics per ID. Plain x-rays of his left ankle which reveal no evidence of osteomyelitis. Left ankle abscess/cellulitis. Patient is status post I&D of the left ankle by orthopedics. Await biopsy/path results. Arterial Doppler reveals no evidence of peripheral vascular disease to prevent wound healing. Uncontrolled type 2 diabetes mellitus. Continue scale insulin and ADA diet Hyperammonemia. Continue lactulose, and daily ammonia levels. Severe protein calorie malnutrition, albumin 1.8, BMI 25. Dietitian consult. Chronic liver disease. Thrombocytopenia. Etiology most likely due to liver disease and hep C. Hematology transfused platelets. Continue to monitor CBC. Hypomagnesemia. Replace and recheck in a.m. Anemia of chronic disease. Continue to monitor DVT prophylaxis: SCDs only given thrombocytopenia Full code History Interval history: No new issues overnight. Hospitalist Physical - Constitutional Vitals: Temp Pulse Resp BP Pulse Ox 97.8 F 75 16 129/78 95 11/03/16 08:00 11/03/16 08:00 11/03/16 08:00 11/03/16 08:00 11/03/16 08:00 General appearance: Present: no acute distress - EENT Eyes: Present: PERRL, EOM intact ENT: hearing intact, clear oral mucosa, dentition normal - Neck Neck: Present: supple, normal ROM - Respiratory Respiratory effort: normal Respiratory: bilateral: CTA - Cardiovascular Rhythm: regular Heart Sounds: Present: S1 & S2. Absent: gallop, rub - Extremities Extremities: no ischemia, No edema, Full ROM - Abdominal General gastrointestinal: soft, non-tender, non-distended, normal bowel sounds - Integumentary Integumentary: Present: clear, warm, dry - Neurologic Neurologic: CNII-XII intact, moves all extremities Results - Labs CBC & Chem 7: 11/03/16 04:52 11/03/16 04:52 Labs: Laboratory Last Values WBC 5.4 K/mm3 (4.5-11.0) 11/03/16 04:52 RBC 3.68 M/mm3 (3.65-5.03) 11/03/16 04:52 Hgb 11.1 gm/dl (11.8-15.2) L 11/03/16 04:52 Hct 33.4 % (35.5-45.6) L 11/03/16 04:52 MCV 91 fl (84-94) 11/03/16 04:52 MCH 30 pg (28-32) 11/03/16 04:52 MCHC 33 % (32-34) 11/03/16 04:52 RDW 16.4 % (13.2-15.2) H 11/03/16 04:52 Plt Count 71 K/mm3 (140-440) L 11/03/16 04:52 Lymph % (Auto) 12.5 % (13.4-35.0) L 11/03/16 04:52 [place] % (Auto) 14.7 % (0.0-7.3) H 11/03/16 04:52 Eos % (Auto) 4.2 % (0.0-4.3) 11/03/16 04:52 Baso % (Auto) 0.5 % (0.0-1.8) 11/03/16 04:52 Lymph # 0.7 K/mm3 (1.2-5.4) L 11/03/16 04:52 [place] # 0.8 K/mm3 (0.0-0.8) 11/03/16 04:52 Eos # 0.2 K/mm3 (0.0-0.4) 11/03/16 04:52 Baso # 0.0 K/mm3 (0.0-0.1) 11/03/16 04:52 Seg Neutrophils % 68.1 % (40.0-70.0) 11/03/16 04:52 Seg Neutrophils # 3.7 K/mm3 (1.8-7.7) 11/03/16 04:52 PT 16.1 Sec. (12.2-14.9) H 11/01/16 09:17 INR 1.23 (0.87-1.13) H 11/01/16 09:17 Sodium 137 mmol/L (137-145) 11/03/16 04:52 Potassium 3.6 mmol/L (3.6-5.0) 11/03/16 04:52 Chloride 102.8 mmol/L (98-107) 11/03/16 04:52 Carbon Dioxide 23 mmol/L (22-30) 11/03/16 04:52 Anion Gap 15 mmol/L 11/03/16 04:52 BUN 8 mg/dL (9-20) L 11/03/16 04:52 Creatinine 0.9 mg/dL (0.8-1.5) 11/03/16 04:52 Estimated GFR > 60 ml/min 11/03/16 04:52 BUN/Creatinine Ratio 8.88 % 11/03/16 04:52 Glucose 106 mg/dL (75-100) H 11/03/16 04:52 POC Glucose 106 (70-105) H 11/03/16 05:46 Hemoglobin A1c 5.3 % (4-6) 10/29/16 16:02 Lactic Acid 1.20 mmol/L (0.7-2.0) 10/31/16 05:20 Calcium 7.9 mg/dL (8.4-10.2) L 11/03/16 04:52 Phosphorus 3.80 mg/dL (2.5-4.5) 10/30/16 06:10 Magnesium 1.80 mg/dL (1.7-2.3) 10/31/16 05:20 Total Bilirubin 1.50 mg/dL (0.1-1.2) H 11/01/16 06:59 AST 42 units/L (5-40) H 11/01/16 06:59 ALT 16 units/L (7-56) 11/01/16 06:59 Alkaline Phosphatase 178 units/L (35-129) H 11/01/16 06:59 Ammonia 43.0 umol/L (25-60) 11/02/16 06:34 Total Protein 7.1 g/dL (6.3-8.2) 11/01/16 06:59 Albumin 2.0 g/dL (3.9-5) L 11/01/16 06:59 Albumin/Globulin Ratio 0.4 % 11/01/16 06:59 Vitamin B12 > 2000 pg/mL (211-911) H 11/02/16 10:22 Folate 10.68 ng/mL (7.3-26.0) 11/02/16 10:22 Vancomycin Trough 7.7 ug/mL (5.0-20.0) 11/02/16 20:50 Blood Type O POSITIVE 11/02/16 10:22
--- NOTE | 2016-11-03 14:03 | Progress Note ---
Assessment and Plan Assessment- left ankle pain and swelling Recommendations - incision and drainage was done at the bedside with the return of a bloody drainage there was no odor detected, I would recommend continuing IV antibiotics along with observation Subjective Date of service: 11/03/16 Principal diagnosis: Left Ankle Mass Interval history: No complaints noted from patient, wants to know when he can go home Objective Vital signs: Vital Signs - 12hr 11/03/16 08:00 Temperature 97.8 F Pulse Rate 75 Respiratory 16 Rate Blood Pressure 129/78 O2 Sat by Pulse 95 Oximetry Narrative Exam: On physical exam the ankle was examined, he has good active passive range of motion still with some slight drainage no erythema noted - Labs CBC & BMP: 11/03/16 04:52 11/03/16 04:52 Labs: Abnormal lab results 11/02/16 11/02/16 11/03/16 Range/Units 16:33 21:39 04:52 Hgb 11.1 L (11.8-15.2) gm/dl Hct 33.4 L (35.5-45.6) % RDW 16.4 H (13.2-15.2) % Plt Count 71 L (140-440) K/mm3 Lymph % (Auto) 12.5 L (13.4-35.0) % [place] % (Auto) 14.7 H (0.0-7.3) % Lymph # 0.7 L (1.2-5.4) K/mm3 BUN (9-20) mg/dL Glucose (75-100) mg/dL POC Glucose 227 H 186 H (70-105) Calcium (8.4-10.2) mg/dL 11/03/16 11/03/16 11/03/16 Range/Units 04:52 05:46 11:30 Hgb (11.8-15.2) gm/dl Hct (35.5-45.6) % RDW (13.2-15.2) % Plt Count (140-440) K/mm3 Lymph % (Auto) (13.4-35.0) % [place] % (Auto) (0.0-7.3) % Lymph # (1.2-5.4) K/mm3 BUN 8 L (9-20) mg/dL Glucose 106 H (75-100) mg/dL POC Glucose 106 H 188 H (70-105) Calcium 7.9 L (8.4-10.2) mg/dL
[2016-11-03] MEDS ORDERED: MAXIPIME/NS 1 GM/100 ML 1 GM/100 ML BAG IV SCH (18:00)
[2016-11-03] MEDS: NEURONTIN PO SCH (21:23)
[2016-11-04] MEDS: MAXIPIME/NS 1 GM/100 ML 1 GM/100 ML BAG IV SCH ×3 (03:40→23:18)
[2016-11-04 06:47] LABS: Anion Gap 15 mmol/L; BUN/Creatinine Ratio 11.25; Basophils % (Auto) 0.6 % (0.0-1.8); Blood Urea Nitrogen 9 mg/dL (9-20); Calcium 7.7 mg/dL (8.4-10.2); Carbon Dioxide 24 mmol/L (22-30); Chloride 108.3 mmol/L (98-107); Eosinophils % (Auto) 3.9 % (0.0-4.3); Glucose 90 mg/dL (75-100); Hematocrit 30.1 % (35.5-45.6); Hemoglobin 10.3 gm/dl (11.8-15.2); Mean Corpuscular HGB Conc 34 % (32-34); Mean Corpuscular Hemoglobin 31 pg (28-32); Mean Corpuscular Volume 90 fl (84-94); Potassium 4.4 mmol/L (3.6-5.0); Red Blood Count 3.33 M/mm3 (3.65-5.03); Red Cell Distribution Width 16.4 % (13.2-15.2); Sodium 143 mmol/L (137-145); White Blood Count 5.1 K/mm3 (4.5-11.0)
[2016-11-04 07:10] LABS: Platelet Count 53 K/mm3 (140-440)
[2016-11-04] MEDS: NOVOLOG SUB-Q SCH ×4 (08:39→23:19)
--- NOTE | 2016-11-04 09:21 | Hem/Onc Progress Note ---
Assessment and Plan Platelets have gone down as expected. No active bleeding. If he has to go through surgery, we will have to give him platelets again. If he gets discharged, we can follow him as outpatient. He would need infectious disease follow-up too. Low platelets secondary to hepatitis C along with cirrhosis of the liver Subjective Date of service: 11/04/16 Interval history: Patient denies any active bleeding. Objective - Constitutional Vitals: Last Vital Signs Temp 97.8 F 11/04/16 08:00 Pulse 85 11/04/16 08:00 Resp 20 11/04/16 08:00 BP 121/70 11/04/16 08:00 Pulse Ox 98 11/04/16 08:00 Pain Intensity (0-10): denies any pain General appearance: no acute distress Performance status: 2- selfcare, ambulatory - Respiratory Respiratory effort: Positive: normal Respiratory: bilateral: diminished - Cardiovascular Rhythm: regular - Gastrointestinal General gastrointestinal: Present: distended - Labs Lab Results: Laboratory Results - last 24 hr 11/03/16 11/03/16 11/03/16 11:30 16:42 21:19 WBC RBC Hgb Hct MCV MCH MCHC RDW Plt Count Lymph % (Auto) [place] % (Auto) Eos % (Auto) Baso % (Auto) Lymph # [place] # Eos # Baso # Seg Neutrophils % Seg Neutrophils # Sodium Potassium Chloride Carbon Dioxide Anion Gap BUN Creatinine Estimated GFR BUN/Creatinine Ratio Glucose POC Glucose 188 H 131 H 139 H Calcium 11/04/16 11/04/16 11/04/16 05:10 05:24 05:24 WBC 5.1 RBC 3.33 L Hgb 10.3 L Hct 30.1 L MCV 90 MCH 31 MCHC 34 RDW 16.4 H Plt Count 53 L Lymph % (Auto) 10.3 L [place] % (Auto) 12.7 H Eos % (Auto) 3.9 Baso % (Auto) 0.6 Lymph # 0.5 L [place] # 0.6 Eos # 0.2 Baso # 0.0 Seg Neutrophils % 72.5 H Seg Neutrophils # 3.7 Sodium 143 Potassium 4.4 D Chloride 108.3 H Carbon Dioxide 24 Anion Gap 15 BUN 9 Creatinine 0.8 Estimated GFR > 60 BUN/Creatinine Ratio 11.25 Glucose 90 POC Glucose 95 Calcium 7.7 L
[2016-11-04] MEDS: NORCO 5/325 PO PRN ×3 (09:40→23:26)
[2016-11-04] MEDS: VANCOMYCIN/NS 1 GM/250 ML 1 GM/250 ML BAG IV SCH (10:14)
--- NOTE | 2016-11-04 11:16 | Progress Note ---
Assessment and Plan Assessment and plan: Sepsis due to left ankle/leg cellulitis. Continue IV antibiotics per ID. Plain x-rays of his left ankle which reveal no evidence of osteomyelitis. Left ankle abscess/cellulitis. Patient is status post I&D of the left ankle by orthopedics. Infectious disease would like a biopsy done of the ankle. We will discuss with orthopedics. Arterial Doppler reveals no evidence of peripheral vascular disease to prevent wound healing. Uncontrolled type 2 diabetes mellitus. Continue scale insulin and ADA diet Hyperammonemia. Continue lactulose, and daily ammonia levels. Severe protein calorie malnutrition, albumin 1.8, BMI 25. Dietitian consult. Chronic liver disease. Thrombocytopenia. Etiology most likely due to liver disease and hep C. Hematology transfused platelets. Continue to monitor CBC. Hypomagnesemia. Replace and recheck in a.m. Anemia of chronic disease. Continue to monitor DVT prophylaxis: SCDs only given thrombocytopenia Full code History Interval history: No new issues overnight. Hospitalist Physical - Constitutional Vitals: Temp Pulse Resp BP Pulse Ox 97.8 F 85 20 121/70 98 11/04/16 08:00 11/04/16 08:00 11/04/16 08:00 11/04/16 08:00 11/04/16 08:00 General appearance: Present: no acute distress - EENT Eyes: Present: PERRL, EOM intact ENT: hearing intact, clear oral mucosa, dentition normal - Neck Neck: Present: supple, normal ROM - Respiratory Respiratory effort: normal Respiratory: bilateral: CTA - Cardiovascular Rhythm: regular Heart Sounds: Present: S1 & S2. Absent: gallop, rub - Extremities Extremities: no ischemia, No edema, Full ROM - Abdominal General gastrointestinal: soft, non-tender, non-distended, normal bowel sounds - Integumentary Integumentary: Present: clear, warm, dry - Neurologic Neurologic: CNII-XII intact, moves all extremities Results - Labs CBC & Chem 7: 11/04/16 05:24 11/04/16 05:24 Labs: Laboratory Last Values WBC 5.1 K/mm3 (4.5-11.0) 11/04/16 05:24 RBC 3.33 M/mm3 (3.65-5.03) L 11/04/16 05:24 Hgb 10.3 gm/dl (11.8-15.2) L 11/04/16 05:24 Hct 30.1 % (35.5-45.6) L 11/04/16 05:24 MCV 90 fl (84-94) 11/04/16 05:24 MCH 31 pg (28-32) 11/04/16 05:24 MCHC 34 % (32-34) 11/04/16 05:24 RDW 16.4 % (13.2-15.2) H 11/04/16 05:24 Plt Count 53 K/mm3 (140-440) L 11/04/16 05:24 Lymph % (Auto) 10.3 % (13.4-35.0) L 11/04/16 05:24 [place] % (Auto) 12.7 % (0.0-7.3) H 11/04/16 05:24 Eos % (Auto) 3.9 % (0.0-4.3) 11/04/16 05:24 Baso % (Auto) 0.6 % (0.0-1.8) 11/04/16 05:24 Lymph # 0.5 K/mm3 (1.2-5.4) L 11/04/16 05:24 [place] # 0.6 K/mm3 (0.0-0.8) 11/04/16 05:24 Eos # 0.2 K/mm3 (0.0-0.4) 11/04/16 05:24 Baso # 0.0 K/mm3 (0.0-0.1) 11/04/16 05:24 Seg Neutrophils % 72.5 % (40.0-70.0) H 11/04/16 05:24 Seg Neutrophils # 3.7 K/mm3 (1.8-7.7) 11/04/16 05:24 PT 16.1 Sec. (12.2-14.9) H 11/01/16 09:17 INR 1.23 (0.87-1.13) H 11/01/16 09:17 Sodium 143 mmol/L (137-145) 11/04/16 05:24 Potassium 4.4 mmol/L (3.6-5.0) D 11/04/16 05:24 Chloride 108.3 mmol/L (98-107) H 11/04/16 05:24 Carbon Dioxide 24 mmol/L (22-30) 11/04/16 05:24 Anion Gap 15 mmol/L 11/04/16 05:24 BUN 9 mg/dL (9-20) 11/04/16 05:24 Creatinine 0.8 mg/dL (0.8-1.5) 11/04/16 05:24 Estimated GFR > 60 ml/min 11/04/16 05:24 BUN/Creatinine Ratio 11.25 % 11/04/16 05:24 Glucose 90 mg/dL (75-100) 11/04/16 05:24 POC Glucose 200 (70-105) H 11/04/16 11:11 Hemoglobin A1c 5.3 % (4-6) 10/29/16 16:02 Lactic Acid 1.20 mmol/L (0.7-2.0) 10/31/16 05:20 Calcium 7.7 mg/dL (8.4-10.2) L 11/04/16 05:24 Phosphorus 3.80 mg/dL (2.5-4.5) 10/30/16 06:10 Magnesium 1.80 mg/dL (1.7-2.3) 10/31/16 05:20 Total Bilirubin 1.50 mg/dL (0.1-1.2) H 11/01/16 06:59 AST 42 units/L (5-40) H 11/01/16 06:59 ALT 16 units/L (7-56) 11/01/16 06:59 Alkaline Phosphatase 178 units/L (35-129) H 11/01/16 06:59 Ammonia 43.0 umol/L (25-60) 11/02/16 06:34 Total Protein 7.1 g/dL (6.3-8.2) 11/01/16 06:59 Albumin 2.0 g/dL (3.9-5) L 11/01/16 06:59 Albumin/Globulin Ratio 0.4 % 11/01/16 06:59 Vitamin B12 > 2000 pg/mL (211-911) H 11/02/16 10:22 Folate 10.68 ng/mL (7.3-26.0) 11/02/16 10:22 Vancomycin Trough 7.7 ug/mL (5.0-20.0) 11/02/16 20:50 Blood Type O POSITIVE 11/02/16 10:22
--- NOTE | 2016-11-04 11:55 | Progress Note ---
Assessment and Plan - Patient Problems (1) Mass of left ankle Current Visit: Yes Status: Acute Plan to address problem: 1. Need tissue biopsy after which patient can be discharged to continue empiric antibiotics orally. 2. I originally put in orders for AFB, fungal, bacterial and path studies of tissue biopsy. Would have tissue from ankle assessed for these by pathologist. 3. Patient can continue empiric Levaquin or Doxycycline pending outpatient follow-up of biopsy results. He has the contact information for my office and is instructed to call to schedule an appointment. (2) Hepatic cirrhosis due to chronic hepatitis C infection Current Visit: No Status: Acute Plan to address problem: For outpatient management. Subjective Date of service: 11/04/16 Principal diagnosis: Left Ankle Mass Interval history: No new path data. Patient has no new complaints. Objective - Exam Narrative Exam: son at bedside - Constitutional Vitals: Vital Signs Temp Pulse Resp BP Pulse Ox 97.8 F 85 20 121/70 98 11/04/16 08:00 11/04/16 08:00 11/04/16 08:00 11/04/16 08:00 11/04/16 08:00 Temperature -Last 24 Hours Temperature 97.8 F Temperature 98.1 F Temperature 99.9 F General appearance: Present: no acute distress - Respiratory Respiratory effort: normal Respiratory: bilateral: CTA - Cardiovascular Rhythm: regular Heart Sounds: Present: S1 & S2 Extremity abnormal: edema (serous drainage from left ankle lesion, size unchanged since admission, mild erythema of more proximal leg) - Gastrointestinal General gastrointestinal: Present: soft, non-distended - Integumentary Integumentary: clear - Neurologic Neurologic: moves all extremities - Psychiatric Psychiatric: appropriate mood/affect - Labs CBC & Chem 7: 11/04/16 05:24 11/04/16 05:24 Labs: Abnormal lab results 11/03/16 11/03/16 11/03/16 Range/Units 11:30 16:42 21:19 RBC (3.65-5.03) M/mm3 Hgb (11.8-15.2) gm/dl Hct (35.5-45.6) % RDW (13.2-15.2) % Plt Count (140-440) K/mm3 Lymph % (Auto) (13.4-35.0) % [facility] [place] % (Auto) (0.0-7.3) % Lymph # (1.2-5.4) K/mm3 Seg Neutrophils % (40.0-70.0) % Chloride (98-107) mmol/L POC Glucose 188 H 131 H 139 H (70-105) Calcium (8.4-10.2) mg/dL 11/04/16 11/04/16 11/04/16 Range/Units 05:24 05:24 11:11 RBC 3.33 L (3.65-5.03) M/mm3 Hgb 10.3 L (11.8-15.2) gm/dl Hct 30.1 L (35.5-45.6) % RDW 16.4 H (13.2-15.2) % Plt Count 53 L (140-440) K/mm3 Lymph % (Auto) 10.3 L (13.4-35.0) % [place] % (Auto) 12.7 H (0.0-7.3) % Lymph # 0.5 L (1.2-5.4) K/mm3 Seg Neutrophils % 72.5 H (40.0-70.0) % Chloride 108.3 H (98-107) mmol/L POC Glucose 200 H (70-105) Calcium 7.7 L (8.4-10.2) mg/dL Microbiology 10/29/16 17:27 Peripheral/Venous Blood Culture - Final NO GROWTH AFTER 5 DAYS 10/29/16 17:27 Peripheral/Venous Blood Culture - Final NO GROWTH AFTER 5 DAYS
[2016-11-04] MEDS: NEURONTIN PO SCH (23:24)
[2016-11-05] MEDS: VANCOMYCIN/NS 1 GM/250 ML 1 GM/250 ML BAG IV SCH ×2 (00:20→09:00)
[2016-11-05] MEDS: MAXIPIME/NS 1 GM/100 ML 1 GM/100 ML BAG IV SCH ×2 (05:21→12:00)
[2016-11-05 06:44] LABS: Basophils % (Auto) 0.2 % (0.0-1.8); Eosinophils % (Auto) 3.1 % (0.0-4.3); Hematocrit 31.2 % (35.5-45.6); Hemoglobin 10.5 gm/dl (11.8-15.2); Mean Corpuscular HGB Conc 34 % (32-34); Mean Corpuscular Hemoglobin 31 pg (28-32); Mean Corpuscular Volume 91 fl (84-94); Red Blood Count 3.43 M/mm3 (3.65-5.03); Red Cell Distribution Width 16.3 % (13.2-15.2); White Blood Count 6.9 K/mm3 (4.5-11.0)
[2016-11-05 07:13] LABS: Anion Gap 11 mmol/L; Blood Urea Nitrogen 10 mg/dL (9-20); Calcium 7.7 mg/dL (8.4-10.2); Carbon Dioxide 25 mmol/L (22-30); Chloride 106.3 mmol/L (98-107); Glucose 103 mg/dL (75-100); Potassium 4.3 mmol/L (3.6-5.0); Sodium 138 mmol/L (137-145)
[2016-11-05 07:24] LABS: Platelet Count 57 K/mm3 (140-440)
[2016-11-05] MEDS: NOVOLOG SUB-Q SCH ×2 (07:30→11:30)
--- NOTE | 2016-11-05 08:18 | Discharge Summary ---
Providers - Providers Date of Admission: 10/29/16 21:01 Date of discharge: 11/05/16 Attending physician: CARLOS JUSTICE 10/30/16 07:55 Consult to Dietitian/Nutrition [CONS] Routine Physician Instructions: Reason For Exam: Reason for Consult: Malnutrition 10/30/16 10:23 Consult to Physician [CONS] Routine Consulting Provider: MEDINA ALLEN Reason For Exam: left ankle abscess Place consult to:: Alejandro GROSSMAN Notified:: OFFICE Phone number called:: [phone] Was contact made?: No If yes, spoke with:: LEFT MESSAGE FOR OFFICE Time called:: 10:43 Comment:: ESET NOTIFIED/ NO ANSWERING SERVICES AURIST/NO COVERAGE Consult to Physician [CONS] Routine Consulting Provider: EMELIA CLEVELAND Reason For Exam: left ankle abscess, abx management Place consult to:: [place] GROSSMAN Notified:: CELL Phone number called:: [phone] Was contact made?: No If yes, spoke with:: MESSAGE LEFT ON CELL Time called:: 10:48 Comment:: PANDA NOTIFKYARA Consult to Wound/ET Nurse [CONS] Routine Reason For Exam: wound eval 10/30/16 10:24 Consult to Physician [CONS] Routine Consulting Provider: RACHELL ADEN Reason For Exam: PVD with dm left ankle ulcer Place consult to:: Mirian GROSSMAN Notified:: ANSWERING SERVICES Phone number called:: [phone] Was contact made?: Yes If yes, spoke with:: DR. ADEN Time called:: 10:39 Comment:: PANDA NOTIFIED 10/31/16 12:54 Consult to Physician [CONS] Routine Consulting Provider: AUTUMN RUIZ Reason For Exam: Wound care Place consult to:: Dr. Autumn Ruiz Notified:: office Phone number called:: [phone] Was contact made?: Yes If yes, spoke with:: BEE Lincoln called:: 13:19 Comment:: KEL NOTIFIED 11/01/16 10:30 Consult to Physician [CONS] Routine Consulting Provider: MADY THOMAS Reason For Exam: thrombocytopenia Place consult to:: Notified:: OFFICE Phone number called:: [phone] Was contact made?: Yes If yes, spoke with:: KRISTINA Time called:: 11:19 Comment:: GERMAINE NOTIFIED Primary care physician: CLIENT SALES AND SERVICE OFFICER Hospitalization Reason for admission: ankle infection Condition: Stable Hospital course: Ms. Goodwin is a 66-year-old woman with DM2 and hypertension who is being treated for an infection of the left ankle. Patient had a remote left heel wound (~25 years ago), which required skin graft closure. He has had no residual problems with his heel. He denied having indwelling hardware. Suddenly ~2 weeks prior to admission, the patient noticed swelling over the lateral aspect of his left ankle. He denied trauma or local injury. He does not wear shoes which could cause superficial trauma. He has had no constitutional signs/symptoms. He presented here for evaluation. A left ankle xray showed post-surgical changes and soft tissue edema. No evidence of osteomyelitis. The patient was seen by infectious disease, orthopedic surgery and general surgery. Orthopedic surgery perform incision and drainage at the bedside. Patient received appropriate IV antibiotics during hospitalization. Infectious disease felt that the patient would need a biopsy for pathology of the left ankle that can be done as an outpatient. I discussed the follow-up with Dr. Allen of orthopedics who will set this up as an outpatient. The left ankle mass is not characteristic of a typical abscess. Other, case don't hospitalization included hepatic cirrhosis due to chronic hepatitis C infection. The patient was also evaluated by infectious disease with this as well. Viral load and genotype were explored and will be followed up as an outpatient. The treatment will also be followed up as an outpatient with infectious disease. Patient was noted to have thrombocytopenia which was felt to be secondary to the cirrhosis/hepatitis C. Patient was seen by hematology and received platelet transfusion. Patient had no active bleeding and was stable. This also will be followed up as an outpatient. Dedicated discharge time 38 minutes. Disposition: DC-01 TO HOME OR SELFCARE Time spent for discharge: 38 Core Measure Documentation - Palliative Care Palliative Care/ Comfort Measures: Not Applicable - Core Measures Any of the following diagnoses?: none Exam - Constitutional Vitals: Temp Pulse Resp BP Pulse Ox 98.0 F 78 18 129/74 98 11/04/16 21:25 11/04/16 23:31 11/04/16 23:31 11/04/16 21:25 11/04/16 15:10 General appearance: Present: no acute distress, well-nourished - EENT Eyes: Present: PERRL ENT: hearing intact, clear oral mucosa - Neck Neck: Present: supple, normal ROM - Respiratory Respiratory effort: normal Respiratory: bilateral: CTA - Cardiovascular Heart Sounds: Present: S1 & S2. Absent: rub, click - Extremities Extremities: pulses symmetrical, No edema Peripheral Pulses: within normal limits - Abdominal General gastrointestinal: Present: soft, non-tender, non-distended, normal bowel sounds Male genitourinary: Present: normal - Integumentary Integumentary: Present: clear, warm, dry - Musculoskeletal Musculoskeletal: gait normal, strength equal bilaterally - Psychiatric Psychiatric: appropriate mood/affect, intact judgment & insight - Neurologic Neurologic: CNII-XII intact, moves all extremities Plan Activity: no restrictions Weight Bearing Status: Weight Bear as Tolerated Diet: regular Follow up with: PRIMARY CAREMD [Primary Care Provider] - 3-5 Days EMELIA CLEVELAND MD [Staff Physician] - 7 Days MADY THOMAS MD [Staff Physician] - 7 Days MEDINA ALLEN MD [Staff Physician] - 7 Days Prescriptions: HYDROcodone/APAP 5-325 [[facility] [place] 5-325 mg TAB] 1 each PO Q4H PRN #20 tablet PRN Reason: Pain , Severe (7-10) Levofloxacin [Levaquin] 750 mg PO QDAY #7 tablet
[2016-11-05 11:52] VITALS: BP 135/78
== END 2016-11-05 12:35 | disposition home or self-care (01) | DRG 871 ==
LOC: ED 14:06 → 3A 21:01
PROVIDERS: ADMIT Family Medicine; ATTEND Hospitalist
PROC: 0Y9L3ZZ Drainage of Left Ankle Region, Percutaneous Approach (ICD-10-PCS; principal; 2016-11-01)
PROC: 30233R1 Transfusion of Nonautologous Platelets into Peripheral Vein, Percutaneous Approach (ICD-10-PCS; 2016-11-02)
DX: A41.9 Sepsis, unspecified organism (principal); E43 Unspecified severe protein-calorie malnutrition; N17.9 Acute kidney failure, unspecified; E72.4 Disorders of ornithine metabolism; L03.116 Cellulitis of left lower limb; L02.416 Cutaneous abscess of left lower limb; I85.00 Esophageal varices without bleeding; L97.329 Non-pressure chronic ulcer of left ankle with unspecified severity; B18.2 Chronic viral hepatitis C; D69.1 Qualitative platelet defects; F17.210 Nicotine dependence, cigarettes, uncomplicated; K74.60 Unspecified cirrhosis of liver; F41.9 Anxiety disorder, unspecified; E11.622 Type 2 diabetes mellitus with other skin ulcer; D63.8 Anemia in other chronic diseases classified elsewhere; K59.00 Constipation, unspecified; D69.6 Thrombocytopenia, unspecified; E83.42 Hypomagnesemia; E11.9 Type 2 diabetes mellitus without complications; I10 Essential (primary) hypertension; K21.9 Gastro-esophageal reflux disease without esophagitis; Z80.0 Family history of malignant neoplasm of digestive organs; Z82.49 Family history of ischemic heart disease and other diseases of the circulatory system; Z90.49 Acquired absence of other specified parts of digestive tract; Z68.24 Body mass index [BMI] 24.0-24.9, adult; Z79.899 Other long term (current) drug therapy
CPT/HCPCS: 10160; 36415; 77012; 80048; 80053; 80202; 82140; 82607; 82747; 82962; 83036; 83735; 84100; 85025; 85610; 86900; 86901; 87040; 87517; 87902; 93922; 93925; 96361; 96374; 96375; 99406; J0690; J0692; J0696; J1200; J1644; J1815; J2250; J2270; J3010; J3370; J3475; J7030; J7050; P9035; Q9967

== ENCOUNTER 2016-11-19 02:38 | Emergency (ER) | payer MEDICARE ==
[2016-11-19 03:48] LABS: Hematocrit 34.4 % (35.5-45.6); Hemoglobin 11.6 gm/dl (11.8-15.2); Mean Corpuscular HGB Conc 34 % (32-34); Mean Corpuscular Hemoglobin 31 pg (28-32); Mean Corpuscular Volume 92 fl (84-94); Red Blood Count 3.73 M/mm3 (3.65-5.03); Red Cell Distribution Width 18.7 % (13.2-15.2); White Blood Count 7.4 K/mm3 (4.5-11.0)
[2016-11-19 04:03] LABS: Platelet Count 92 K/mm3 (140-440)
[2016-11-19 04:10] LABS: Anion Gap TNR mmol/L; BUN/Creatinine Ratio TNR; Blood Urea Nitrogen TNR mg/dL (9-20); Carbon Dioxide TNR mmol/L (22-30); Chloride TNR mmol/L (98-107); Glucose TNR mg/dL (75-100); Potassium TNR mmol/L (3.6-5.0); Sodium TNR mmol/L (137-145)
[2016-11-19 04:11] LABS: Alanine Aminotransferase TNR units/L (7-56); Albumin TNR g/dL (3.9-5); Albumin/Globulin Ratio TNR %; Alkaline Phosphatase TNR units/L (35-129); Bilirubin,Total TNR mg/dL (0.1-1.2); Calcium TNR mg/dL (8.4-10.2); Lipase TNR units/L (13-60); Total Protein TNR g/dL (6.3-8.2)
[2016-11-19 04:54] LABS: Albumin 2.2 g/dL (3.9-5); Albumin/Globulin Ratio 0.3 %; BUN/Creatinine Ratio 38.57; Blood Urea Nitrogen 27 mg/dL (9-20); Carbon Dioxide 17 mmol/L (22-30); Chloride 102.3 mmol/L (98-107); Glucose 242 mg/dL (75-100); Lipase 40 units/L (13-60); Sodium 132 mmol/L (137-145); Total Protein 8.5 g/dL (6.3-8.2)
[2016-11-19 05:04] LABS: INR 1.66 (0.87-1.13); Partial Thromboplastin Time 32.9 Sec. (24.2-36.6)
[2016-11-19] MEDS ORDERED: ZOFRAN ONE (05:07)
[2016-11-19] MEDS ORDERED: MORPHINE IV ONE (05:10)
[2016-11-19] MEDS ORDERED: MORPHINE ONE (05:10)
[2016-11-19] MEDS ORDERED: ZOFRAN IV ONE (05:10)
[2016-11-19 05:13] LABS: Alanine Aminotransferase 80 units/L (7-56); Alkaline Phosphatase 227 units/L (35-129); Anion Gap 19 mmol/L; Potassium 4.6 mmol/L (3.6-5.0)
[2016-11-19 05:16] LABS: Anisocytosis Few; Basophils % (Manual) 0 % (0.0-1.8); Blastocytes % (Manual) 0 %; Diff Status Complete; Eosinophils % (Manual) 0 % (0.0-4.3); Hypochromasia Few; Platelet Estimate Consistent w Auto
[2016-11-19] MEDS ORDERED: NORCO 10/325 PO ONE (06:21)
--- NOTE | 2016-11-19 06:46 | Emergency Department Report ---
ED Abdominal Pain HPI - General Chief Complaint: Abdominal Pain Stated Complaint: ABD PAIN Time Seen by Provider: 11/19/16 06:08 Source: patient, family, EMS Mode of arrival: Stretcher Limitations: Language Barrier - History of Present Illness Initial Comments: Patient is a 66-year-old male past medical history of liver cancer who presents with abdominal pain has been going on for the last one hour. He states his abdominal pain is an 8 out of 10 and is located in the right upper quadrant it is constant he states that this is an exacerbation of his cancer pain. Nothing makes it better or worse. It is an achy type of pain it doesn't radiate. He received radiation and chemotherapy on of last week. He states he gets his oncologic care at [facility]. Patient states that he has no nausea vomiting or diarrhea. States that his abdomen has been slightly distended. But he supposed to have his first paracentesis next Monday. He states that he feels okay to go and he came for pain control. There is nothing unusual about his abdominal pain. Severity scale (0 -10): 10 - Related Data Home Medications Medication Instructions Recorded Confirmed Last Taken [facility] Adults 50+ Tablet 1 tab PO DAILY 06/16/15 10/29/16 06/15/15 Losartan 50 mg PO DAILY 06/16/15 10/29/16 06/15/15 glipiZIDE 10 mg PO TIDWM 06/16/15 10/29/16 06/15/15 Gabapentin [Neurontin] 100 mg PO QHS 10/29/16 10/29/16 Unknown Naproxen/Esomeprazole Mag [Vimovo 2 each PO DAILY 10/29/16 10/29/[address] 500-20 mg Tablet] Previous Rx's Medication Instructions Recorded Last Taken Type HYDROcodone/APAP 5-325 [[place] 1 each PO Q4H PRN #20 tablet 11/05/16 Unknown Rx 5-325 mg TAB] Levofloxacin [Levaquin] 750 mg PO QDAY #7 tablet 11/05/16 Unknown Rx Allergies Allergy/AdvReac Type Severity Reaction Status Date / Time No Known Allergies Allergy Verified 10/29/16 14:13 ED Review of Systems ROS: Stated complaint: ABD PAIN Other details as noted in HPI Constitutional: weakness. denies: chills, fever Eyes: denies: eye pain, eye discharge, vision change ENT: denies: ear pain, throat pain Respiratory: denies: cough, shortness of breath, wheezing Cardiovascular: denies: chest pain, palpitations Endocrine: no symptoms reported Gastrointestinal: as per HPI, abdominal pain. denies: nausea, diarrhea Genitourinary: denies: urgency, dysuria Musculoskeletal: denies: back pain, joint swelling, arthralgia Skin: denies: rash, lesions Neurological: other (chronic left facial droop). denies: headache, weakness, paresthesias Psychiatric: denies: anxiety, depression Hematological/Lymphatic: denies: easy bleeding, easy bruising ED Past Medical Hx - Past Medical History Previous Medical History?: Yes Hx Hypertension: Yes Hx Heart Attack/AMI: No Hx Diabetes: Yes Hx GERD: Yes Hx Liver Disease: Yes (HEPATITIS C Liver cancer) Hx Renal Disease: No Hx Seizures: No Hx Asthma: No Additional medical history: HEPC Liver cancer - Surgical History Past Surgical History?: Yes Hx Cholecystectomy: Yes Additional Surgical History: left foot surgery - Social History Smoking Status: Current Every Day Smoker Substance Use Type: Prescribed - Medications Home Medications: Home Medications Medication Instructions Recorded Confirmed Last Taken Type [facility] Adults 50+ Tablet 1 tab PO DAILY 06/16/15 10/29/16 06/15/15 History Losartan 50 mg PO DAILY 06/16/15 10/29/16 06/15/15 History glipiZIDE 10 mg PO TIDWM 06/16/15 10/29/16 06/15/15 History Gabapentin [Neurontin] 100 mg PO QHS 10/29/16 10/29/16 Unknown History Naproxen/Esomeprazole Mag [Vimovo 2 each PO DAILY 10/29/16 10/29/[address] 500-20 mg Tablet] HYDROcodone/APAP 5-325 [[place] 1 each PO Q4H PRN #20 tablet 11/05/16 Unknown Rx 5-325 mg TAB] Levofloxacin [Levaquin] 750 mg PO QDAY #7 tablet 11/05/16 Unknown Rx ED Physical Exam - General Limitations: Language Barrier General appearance: alert - Head Head exam: Present: atraumatic, normocephalic - Eye Eye exam: Present: normal appearance - ENT ENT exam: Present: mucous membranes moist - Neck Neck exam: Present: normal inspection - Respiratory Respiratory exam: Present: normal lung sounds bilaterally. Absent: respiratory distress - Cardiovascular Cardiovascular Exam: Present: regular rate, normal rhythm. Absent: systolic murmur, diastolic murmur, rubs, gallop - GI/Abdominal GI/Abdominal exam: Present: distended, other (slight tenderness in the right upper quadrant area but same as it always is) - Rectal Rectal exam: Present: deferred - Extremities Exam Extremities exam: Present: normal inspection - Back Exam Back exam: Present: normal inspection - Neurological Exam Neurological exam: Present: alert, oriented X3, other (left facial droop) - Psychiatric Psychiatric exam: Present: normal affect, normal mood - Skin Skin exam: Present: warm, dry, intact, normal color. Absent: rash ED Course Vital Signs 11/19/16 11/19/16 11/19/16 02:47 02:56 03:00 Temperature 97.2 F L Pulse Rate 100 H 96 H Respiratory 18 10 L Rate Blood Pressure 146/86 140/81 O2 Sat by Pulse 98 97 94 Oximetry 11/19/16 11/19/16 11/19/16 03:15 03:30 03:45 Temperature Pulse Rate 95 H 89 90 Respiratory 17 8 L 7 L Rate Blood Pressure 138/83 140/82 128/80 O2 Sat by Pulse 94 94 93 Oximetry 11/19/16 11/19/16 11/19/16 04:00 04:15 04:30 Temperature Pulse Rate 87 92 H 90 Respiratory 24 18 11 L Rate Blood Pressure 133/79 135/78 148/87 O2 Sat by Pulse 95 97 96 Oximetry 11/19/16 11/19/16 11/19/16 04:45 05:00 05:15 Temperature Pulse Rate 92 H 93 H 91 H Respiratory 10 L 9 L 6 L Rate Blood Pressure 125/81 135/84 132/88 O2 Sat by Pulse 100 95 Oximetry 11/19/16 11/19/16 11/19/16 05:30 05:45 06:00 Temperature Pulse Rate 95 H 93 H 94 H Respiratory 8 L 6 L 13 Rate Blood Pressure 128/84 132/86 120/84 O2 Sat by Pulse 94 94 Oximetry 11/19/16 11/19/16 06:15 06:38 Temperature Pulse Rate 97 H 91 H Respiratory 6 L 6 L Rate Blood Pressure 137/83 O2 Sat by Pulse 93 94 Oximetry - Reevaluation(s) Reevaluation #1: 11/19/16 06:48 Patient states that his pain is feeling better I will give patient oral analgesic medications. Reevaluation #2: 11/19/16 07:43 Patient is feeling better we'll send patient home to follow-up with his oncologist. ED Medical Decision Making - Lab Data Result diagrams: 11/19/16 03:16 11/19/16 04:21 Lab Results 11/19/16 11/19/16 11/19/16 Range/Units 03:16 03:16 04:21 WBC 7.4 (4.5-11.0) K/mm3 RBC 3.73 (3.65-5.03) M/mm3 Hgb 11.6 L (11.8-15.2) gm/dl Hct 34.4 L (35.5-45.6) % MCV 92 (84-94) fl MCH 31 (28-32) pg MCHC 34 (32-34) % RDW 18.7 H (13.2-15.2) % Plt Count 92 L (140-440) K/mm3 Add Manual Diff Complete Total Counted 100 Seg Neutrophils % Drug And Alcohol Counsellor Seg Neuts % (Manual) 47.0 (40.0-70.0) % Band Neutrophils % 45.0 % Lymphocytes % (Manual) 3.0 L (13.4-35.0) % Reactive Lymphs % (Man) 0 % Monocytes % (Manual) 2.0 (0.0-7.3) % Eosinophils % (Manual) 0 (0.0-4.3) % Basophils % (Manual) 0 (0.0-1.8) % Metamyelocytes % 3.0 % Myelocytes % 0 % Promyelocytes % 0 % Blast Cells % 0 % Nucleated RBC % Not Reportable Seg Neutrophils # Man 3.5 (1.8-7.7) K/mm3 Band Neutrophils # 3.3 K/mm3 Lymphocytes # (Manual) 0.2 L (1.2-5.4) K/mm3 Abs React Lymphs (Man) 0.0 K/mm3 Monocytes # (Manual) 0.1 (0.0-0.8) K/mm3 Eosinophils # (Manual) 0.0 (0.0-0.4) K/mm3 Basophils # (Manual) 0.0 (0.0-0.1) K/mm3 Metamyelocytes # 0.2 K/mm3 Myelocytes # 0.0 K/mm3 Promyelocytes # 0.0 K/mm3 Blast Cells # 0.0 K/mm3 WBC Morphology Not Reportable Hypersegmented Neuts Not Reportable Hyposegmented Neuts Not Reportable Hypogranular Neuts Not Reportable Smudge Cells Not Reportable Toxic Granulation Not Reportable Toxic Vacuolation Not Reportable Dohle Bodies Not Reportable Pelger-Huet Anomaly Not Reportable Bo Rods Not Reportable Platelet Estimate Consistent w auto Clumped Platelets Not Reportable Plt Clumps, EDTA Not Reportable Large Platelets Not Reportable Giant Platelets Not Reportable Platelet Satelliting Not Reportable Plt Morphology Comment Not Reportable RBC Morphology Not Reportable Dimorphic RBCs Not Reportable Polychromasia Not Reportable Hypochromasia Few Poikilocytosis Not Reportable Anisocytosis Few Microcytosis Not Reportable Macrocytosis Not Reportable Spherocytes Not Reportable Pappenheimer Bodies Not Reportable Sickle Cells Not Reportable Target Cells Not Reportable Tear Drop Cells Not Reportable Ovalocytes Not Reportable Helmet Cells Not Reportable [place] Bodies Not Reportable [place] Rings Not Reportable Lj Cells Not Reportable Bite Cells Not Reportable Crenated Cell Not Reportable Elliptocytes Not Reportable Acanthocytes (Spur) Not Reportable Rouleaux Not Reportable Hemoglobin C Crystals Not Reportable Schistocytes Not Reportable Malaria parasites Not Reportable Jamshid Bodies Not Reportable Hem Pathologist Commnt No PT (12.2-14.9) Sec. INR (0.87-1.13) APTT (24.2-36.6) Sec. Sodium TNR 132 L Potassium TNR 4.6 Chloride TNR 102.3 Carbon Dioxide TNR 17 L Anion Gap TNR 19 BUN TNR 27 H Creatinine TNR 0.7 L Estimated GFR TNR > 60 BUN/Creatinine Ratio TNR 38.57 Glucose TNR 242 H Calcium TNR 8.0 L Total Bilirubin TNR 1.70 H AST TNR 152 H ALT TNR 80 H Alkaline Phosphatase TNR 227 H Total Protein TNR 8.5 H Albumin TNR 2.2 L Albumin/Globulin Ratio TNR 0.3 Lipase TNR 40 08/26/17 Range/Units 04:39 WBC (4.5-11.0) K/mm3 RBC (3.65-5.03) M/mm3 Hgb (11.8-15.2) gm/dl Hct (35.5-45.6) % MCV (84-94) fl MCH (28-32) pg MCHC (32-34) % RDW (13.2-15.2) % Plt Count (140-440) K/mm3 Add Manual Diff Total Counted Seg Neutrophils % Seg Neuts % (Manual) (40.0-70.0) % Band Neutrophils % % Lymphocytes % (Manual) (13.4-35.0) % Reactive Lymphs % (Man) % Monocytes % (Manual) (0.0-7.3) % Eosinophils % (Manual) (0.0-4.3) % Basophils % (Manual) (0.0-1.8) % Metamyelocytes % % Myelocytes % % Promyelocytes % % Blast Cells % % Nucleated RBC % Seg Neutrophils # Man (1.8-7.7) K/mm3 Band Neutrophils # K/mm3 Lymphocytes # (Manual) (1.2-5.4) K/mm3 Abs React Lymphs (Man) K/mm3 Monocytes # (Manual) (0.0-0.8) K/mm3 Eosinophils # (Manual) (0.0-0.4) K/mm3 Basophils # (Manual) (0.0-0.1) K/mm3 Metamyelocytes # K/mm3 Myelocytes # K/mm3 Promyelocytes # K/mm3 Blast Cells # K/mm3 WBC Morphology Hypersegmented Neuts Hyposegmented Neuts Hypogranular Neuts Smudge Cells Toxic Granulation Toxic Vacuolation Dohle Bodies Pelger-Huet Anomaly Bo Rods Platelet Estimate Clumped Platelets Plt Clumps, EDTA Large Platelets Giant Platelets Platelet Satelliting Plt Morphology Comment RBC Morphology Dimorphic RBCs Polychromasia Hypochromasia Poikilocytosis Anisocytosis Microcytosis Macrocytosis Spherocytes Pappenheimer Bodies Sickle Cells Target Cells Tear Drop Cells Ovalocytes Helmet Cells [place] Bodies [place] Rings [place] Cells Bite Cells Crenated Cell Elliptocytes Acanthocytes (Spur) Rouleaux Hemoglobin C Crystals Schistocytes Malaria parasites Jamshid Bodies Hem Pathologist Commnt PT 19.6 H (12.2-14.9) Sec. INR 1.66 H (0.87-1.13) APTT 32.9 (24.2-36.6) Sec. Sodium Potassium Chloride Carbon Dioxide Anion Gap BUN Creatinine Estimated GFR BUN/Creatinine Ratio Glucose Calcium Total Bilirubin AST ALT Alkaline Phosphatase Total Protein Albumin Albumin/Globulin Ratio Lipase - Medical Decision Making Chief medical diagnosis: Liver cancer exacerbation Differential medical diagnosis: Ascites, GERD, cancer metastases next CBC, CMP, PTT, INR, IV analgesic medication and I will reevaluate patient. Patient states that his abdominal pain is typical for his cancer he just had an exacerbation of his abdominal pain. He will also go to [facility] on Monday for continuation of his cancer care. He states that he had a CT scan last week. Due to patient being in no acute distress and states that his pain is better I will treat patient's pain and I will have him followed return precautions, back to the ER I'll have him follow-up with his oncologist as he is scheduled to return on Monday. Critical care attestation.: If time is entered above; I have spent that time in minutes in the direct care of this critically ill patient, excluding procedure time. ED Disposition Clinical Impression: Abdominal pain, right upper quadrant Liver cancer Qualifiers: Liver malignancy type: unspecified liver malignancy Qualified Code(s): C22.9 - Malignant neoplasm of liver, not specified as primary or secondary Hepatitis C Qualifiers: Viral hepatitis chronicity: chronic Hepatic coma status: without hepatic coma Qualified Code(s): B18.2 - Chronic viral hepatitis C Disposition: TO HOME OR SELFCARE Is pt being admited?: No Does the pt Need Aspirin: No Condition: Stable Referrals: PRIMARY CAREMD [Primary Care Provider] - 3-5 Days Time of Disposition: 07:41
[2016-11-19 08:27] VITALS: BP 137/90
== END 2016-11-19 08:00 | disposition home or self-care (01) ==
LOC: ED 02:38
DX: C22.9 Malignant neoplasm of liver, not specified as primary or secondary (principal); B18.2 Chronic viral hepatitis C; R10.11 Right upper quadrant pain; I10 Essential (primary) hypertension; E11.9 Type 2 diabetes mellitus without complications; K21.9 Gastro-esophageal reflux disease without esophagitis; F17.200 Nicotine dependence, unspecified, uncomplicated; Z79.01 Long term (current) use of anticoagulants
CPT/HCPCS: 36415; 80053; 83690; 85007; 85025; 85610; 85730; 96374; 96375; 99284; J2270; J2405